=== PATIENT | female | born 1965 | race Caucasian/White ===

== ENCOUNTER → 2016-12-15 | Outpatient (CLI) | payer BC ==
[2016-12-15 17:16] LABS: BASO % 0.1 % (0.0-1.0); EOS % 0.2 % (0.0-3.0); LARGE UNSTAINED CELL # 0.3 K/mm3 (0.0-0.4); LARGE UNSTAINED CELL % 2.2 % (0.0-4.0); LYMPH % 7.4 % (24.0-44.0); MEAN CORPUSCULAR HEMOGLOBIN 30.5 pg (27.0-33.0); MEAN CORPUSCULAR HGB CONC 34.3 g/dl (32.0-36.5); MONO # 1.1 K/mm3 (0.0-0.8); MONO % 8.2 % (0.0-5.0); NEUTROPHILS # 10.9 K/mm3 (1.8-7.7); NEUTROPHILS % 81.9 % (36.0-66.0); PLATELET COUNT, AUTOMATED 235 k/mm3 (150-450); WHITE BLOOD COUNT 13.3 K/mm3 (4.0-10.0)
== END ==
LOC: M WUC 11:08
PROVIDERS: ATTEND Physician Assistant
DX: R50.9 Fever, unspecified (principal)

== ENCOUNTER 2016-12-18 17:40 | Emergency (ER) | payer BC ==
[2016-12-18] MEDS ORDERED: IBUPROFEN 400 MG TAB As Ordered ONE (18:15)
[2016-12-18] MEDS ORDERED: ACETAMINOPHEN 325 MG TAB As Ordered ONE (18:15)
[2016-12-18] MEDS ORDERED: CIPROFLOXACIN 500 MG TAB As Ordered ONE (18:49)
--- NOTE | 2016-12-18 18:56 | EDDOCDS ---
Physician Documentation [facility] Name: Reshma Sadler Age: 51 yrs Sex: Female : 1965 Arrival Date: 12/18/2016 Time: 17:40 Bed TR3 Private MD: King Valentino WAT Disposition: 12/18/16 18:50 Discharged to Home/Self Care. Impression: Urinary tract infection, site not specified. - Condition is Stable. - Discharge Instructions: Fever, Adult, Urinary Tract Infection. - Prescriptions for Cipro 500 mg Oral Tablet - take 1 tablet by ORAL route every 12 hours; 14 tablet. - Medication Reconciliation, Work Release Form - 2 day, Local Pharmacy Hours form. - Follow up: King Valentino; When: Call to arrange an appointment; Reason: Recheck today's complaints, Continuance of care. - Problem is new. - Symptoms are unchanged. Historical: - Allergies: no known allergies; - Home Meds: 1. none - PMHx: none; - PSHx: Cholecystectomy; - Social history: Smoking status: Patient states was never smoker of tobacco. No barriers to communication noted, The patient speaks fluent Guamanian, Speaks appropriately for age. - Family history: Not pertinent. - : The pt / caregiver states he / she is not on anticoagulants. Home medication list is obtained from the patient. - Exposure Risk Screening:: None identified. 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 0 in. (152.40 cm) (R); Pain 6/10; 17:42 Body Mass Index 23.44 (54.43 kg, 152.40 cm) mt4 MDM: 18:10 Ibuprofen 400 mg PO once ordered. dt4 18:10 Acetaminophen Tablet 650 mg PO once ordered. dt4 18:10 Strep Screen, Nursing ordered. dt4 18:10 Urinalysis Ordered. EDMS 18:10 Urine Culture Ordered. EDMS 18:37 GATS (NEGATIVE STREP SCREEN) Ordered. EDMS 18:41 Urinalysis Reviewed. mo1 18:47 Ciprofloxacin 500 mg PO once ordered. mo1 Administered Medications: 18:19 Not Given (patient had at 4PM): Ibuprofen 400 mg PO once kr3 18:19 Drug: Acetaminophen 650 mg [acetaminophen 325 mg tablet (2 tabs)] Route: PO; kr3 18:50 Drug: Ciprofloxacin 500 mg [ciprofloxacin 500 mg tablet (1 tabs)] Route: PO; pml Signatures: Dispatcher [employer] EDMarlen Lipscomb RN RN pml King Amezcua PA PA mo1 Matilda García PA-C PAMayra dt4 Kate Cedeno RN kr3 The chart was reviewed and I authenticate all verbal orders and agree with the evaluation and treatment provided.Corrections: (The following items were deleted from the chart) 18:20 18:10 Obtain sample by nasopharyngeal swab ordered. dt4 kr3 18:22 18:10 INFLUENZA A&B RAPID ANTIGEN+JASWINDER ordered. EDMS EDMS MTDD
--- NOTE | 2016-12-18 18:56 | EDDOCDS ---
Nurse's Notes [facility] Name: Reshma Sadler Age: 51 yrs Sex: Female : 1965 Arrival Date: 12/18/2016 Time: 17:40 Bed TR3 Private MD: King Valentino WAT Diagnosis: Urinary tract infection, site not specified Presentation: 12/18 18:00 Presenting complaint: Patient states: intermittent fever and body aches for last few pml days. denies abdominal pain, nausea, vomiting. Adult Sepsis Screening: The patient does not have new or worsening altered mentation. Patient's respiratory rate is less than 22. Systolic blood pressure is greater than 100. Patient has a qSOFA score of 0- Negative Sepsis Screen. Suicide/Homicide risk assessment- the patient denies having any suicidal and/or homicidal ideations and does not present with any other emotional, behavioral or mental health complaints. Status: Patient is not a coordinator volunteer services or dependent. Transition of care: patient was not received from another setting of care. 18:00 Method Of Arrival: Walkin/Carried/Asstd pml 18:00 Acuity: JACOB Level 4 pml 18:01 Presenting complaint: Patient states: last dose Motrin 1600 - 600mg. pml Triage Assessment: 18:01 General: Appears in no apparent distress, comfortable, Behavior is appropriate for age, pml cooperative. Pain: Location: body aches Pain currently is 8 out of 10 on a pain scale. HIV screening NA for this visit Offered previously. 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 none - PMHx: none; - PSHx: Cholecystectomy; - Social history: Smoking status: Patient states was never smoker of tobacco. No barriers to communication noted, The patient speaks fluent Peruvian, Speaks appropriately for age. - Family history: Not pertinent. - : The pt / caregiver states he / she is not on anticoagulants. Home medication list is obtained from the patient. - Exposure Risk Screening:: None identified. Screenin:37 Screening information is obtained from the patient. Fall risk: No risks identified. kr3 Assistance ADL's: requires no assistance with activities of daily living. Abuse/DV Screen: The patient / caregiver reports he/she is: not in a situation that causes fear, pain or injury. Nutritional screening: No deficits noted. Advance Directives: Currently, there is no health care proxy. home support is adequate. Assessment: 18:36 Reassessment: Patient appears in no apparent distress at this time. Neurological: Level kr3 of Consciousness is awake, alert, Moves all extremities. Gait is steady, Speech is normal. EENT: Denies nasal congestion, nasal discharge. Respiratory: Respiratory effort is even, unlabored. Derm: Skin is normal, Skin temperature is warm. 18:53 General: Appears in no apparent distress, comfortable, Behavior is appropriate for age, pml cooperative. Neurological: Level of Consciousness is awake, alert, Oriented to person, place, time. Cardiovascular: Capillary refill < 3 seconds. Respiratory: Airway is patent Respiratory effort is even, unlabored. GI: Abdomen is non- distended. : Reports urgency urinary frequency. Derm: Skin is pink, warm & dry. Vital Signs: 17:42 BP 100 / 56 LA Sitting (auto/reg); Pulse 118 LA; Resp 18 S; Temp 101.2(O); Pulse Ox 98% mt4 on R/A; Weight 54.43 kg (R); Height 5 ft. 0 in. (152.40 cm) (R); Pain 6/10; 17:42 Body Mass Index 23.44 (54.43 kg, 152.40 cm) mt4 Vitals: 17:42 Log In Time: December 18, 2016 at 17:40. mt4 18:36 Strep Screen is obtained and tested: Negative, a GATSNEG culture is ordered in [facility] kr3 and sent. ED Course: 17:41 Patient visited by Pearl Kulkarni. mt4 17:41 King Valentino is Private Physician. mt4 17:41 Patient moved to Waiting mt4 17:44 Patient moved to Pre RCE mt4 18:01 Triage Initiated pml 18:03 Patient visited by Marlen Hancock RN. pml 18:18 Patient moved to Triage 1 kr3 18:21 Patient moved to TR2 pml 18:21 Patient moved to Triage 1 pml 18:26 Urine Culture Sent. kr3 18:26 Urinalysis Sent. kr3 18:31 King Amezcua PA is PHCP. mo1 18:31 Pascual Pettit MD is Attending Physician. mo1 18:37 The patient / caregiver is instructed regarding the plan of care and ED course. Patient dipti has correct armband on for positive identification. 18:40 Patient visited by King Amezcua PA. mo1 18:50 King Valentino is Referral Physician. mo1 18:53 No IV's were initiated during this patient's visit. No procedures done that require pml assistance. 18:54 Patient moved to [facility] jo3 Administered Medications: 18:19 Not Given (patient had at 4PM): Ibuprofen 400 mg PO once kr3 18:19 Drug: Acetaminophen 650 mg [acetaminophen 325 mg tablet (2 tabs)] Route: PO; kr3 18:50 Drug: Ciprofloxacin 500 mg [ciprofloxacin 500 mg tablet (1 tabs)] Route: PO; pml Order Results: Lab Order: Urinalysis; SPEC'M 12/18/16 18:22 Test: APPEARANCE, URINE; Value: CLOUDY; Range: CLEAR; Abnormal: Above high normal; Status: F Test: COLOR, URINE; Value: YELLOW; Range: YELLOW; Status: F Test: PH,URINE; Value: 5.0; Range: 5.0-9.0; Units: UNITS; Status: F Test: SPECIFIC GRAVITY URINE AUTO; Value: 1.012; Range: 1.002-1.035; Status: F Test: PROTEIN, URINE AUTO; Value: 2+; Range: NEGATIVE; Abnormal: Above high normal; Units: mg/dL; Status: F Test: GLUCOSE, URINE (UA) AUTO; Value: 1+; Range: NEGATIVE; Abnormal: Above high normal; Units: mg/dL; Status: F Test: KETONE, URINE AUTO; Value: NEGATIVE; Range: NEGATIVE; Units: mg/dL; Status: F Test: UROBILINOGEN, URINE AUTO; Value: 2.0; Range: 0.0-2.0; Abnormal: Above high normal; Units: mg/dL; Status: F Test: BILIRUBIN, URINE AUTO; Value: NEGATIVE; Range: NEGATIVE; Status: F Test: NITRITE, URINE AUTO; Value: NEGATIVE; Range: NEGATIVE; Status: F Test: LEUKOCYTE ESTERASE, URINE AUTO; Value: 3+; Range: NEGATIVE; Abnormal: Above high normal; Status: F Test: BLOOD, URINE BLOOD; Value: 2+; Range: NEGATIVE; Abnormal: Above high normal; Status: F Test: WBC, URINE AUTO; Value: 74; Range: 0-3; Abnormal: Above high normal; Units: /HPF; Status: F Test: RBC, URINE AUTO; Value: 5; Range: 0-3; Abnormal: Above high normal; Units: /HPF; Status: F Test: BACTERIA, URINE AUTO; Value: 2+; Range: NEGATIVE; Abnormal: Above high normal; Status: F Test: SQUAMOUS EPITHELIAL CELL UR AU; Value: 3; Range: 0-6; Units: /HPF; Status: F Test: TRANSITIONAL EPITHELIAL AUTO; Value: 1; Range: NONE; Units: /HPF; Status: F Test: MUCUS, URINE; Value: SMALL; Range: NEGATIVE; Status: F Test: HYALINE CAST, URINE AUTO; Value: 0; Range: 0-1; Units: /LPF; Status: F Test: AMORPHOUS SEDIMENT; Value: SMALL; Range: NEGATIVE; Abnormal: Above high normal; Status: F Outcome: 18:50 Discharge ordered by Provider. mo1 18:53 Discharge Assessment: Patient awake, alert and oriented x 3. No cognitive and/or pml functional deficits noted. Patient verbalized understanding of disposition instructions. patient administered narcotics - no. The following High Risk Discharge criteria are identified: None. Discharged to home ambulatory. Condition: good Condition: stable. Discharge instructions given to patient, Instructed on discharge instructions, follow up and referral plans. medication usage, Demonstrated understanding of instructions, medications, Pt was receptive of discharge instructions/ teaching. No special radiology studies were completed. Property sent home with patient. 18:55 Patient left the ED. pml Signatures: Kate Cedeno RN RN kr3 Brena Crandall RN RN jo3 Pearl Kulkarni mt4 Marlen Hancock RN RN pml O'Hagan, Michael, PA PA mo1 Corrections: (The following items were deleted from the chart) 18:02 18:01 Presenting complaint: Patient states: last dose Tylenol 1600 pml pml MTDD
--- NOTE | 2016-12-20 19:56 | EDDOCDS ---
Physician Documentation [facility] Name: Reshma Sadler Age: 51 yrs Sex: Female : 1965 Arrival Date: 12/18/2016 Time: 17:40 Bed TR3 Private MD: King Valentino WAT Disposition: 12/18/16 18:50 Discharged to Home/Self Care. Impression: Urinary tract infection, site not specified. - Condition is Stable. - Discharge Instructions: Fever, Adult, Urinary Tract Infection. - Prescriptions for Cipro 500 mg Oral Tablet - take 1 tablet by ORAL route every 12 hours; 14 tablet. - Medication Reconciliation, Work Release Form - 2 day, Local Pharmacy Hours form. - Follow up: King Valentino; When: Call to arrange an appointment; Reason: Recheck today's complaints, Continuance of care. - Problem is new. - Symptoms are unchanged. Historical: - Allergies: no known allergies; - Home Meds: 1. none - PMHx: none; - PSHx: Cholecystectomy; - Social history: Smoking status: Patient states was never smoker of tobacco. No barriers to communication noted, The patient speaks fluent Angolan, Speaks appropriately for age. - Family history: Not pertinent. - : The pt / caregiver states he / she is not on anticoagulants. Home medication list is obtained from the patient. - Exposure Risk Screening:: None identified. 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 0 in. (152.40 cm) (R); Pain 6/10; 17:42 Body Mass Index 23.44 (54.43 kg, 152.40 cm) mt4 MDM: 18:10 Ibuprofen 400 mg PO once ordered. dt4 18:10 Acetaminophen Tablet 650 mg PO once ordered. dt4 18:10 Strep Screen, Nursing ordered. dt4 18:10 Urinalysis Ordered. EDMS 18:10 Urine Culture Ordered. EDMS 18:37 GATS (NEGATIVE STREP SCREEN) Ordered. EDMS 18:41 Urinalysis Reviewed. mo1 18:47 Ciprofloxacin 500 mg PO once ordered. mo1 19:05 Financial registration complete. ks16 19:05 [facility] Payment Agreement was scanned into [employer] and attached to record. 12/19 11:25 T-Sheet-- Draft Copy was scanned into [employer] and attached to record. gb Administered Medications: 12/18 18:19 Not Given (patient had at 4PM): Ibuprofen 400 mg PO once kr3 18:19 Drug: Acetaminophen 650 mg [acetaminophen 325 mg tablet (2 tabs)] Route: PO; kr3 18:50 Drug: Ciprofloxacin 500 mg [ciprofloxacin 500 mg tablet (1 tabs)] Route: PO; pml Signatures: Dispatcher MedHost EDMS Jackie Herrera, Reg Reg gb Marlen Hancock RN RN pml King Amezcua PA PA mo1 Matilda García PA-C PAMayra dt4 Roxann Jorgensen, Reg Reg ks16 Kate Cedeno RN kr3 The chart was reviewed and I authenticate all verbal orders and agree with the evaluation and treatment provided.Corrections: (The following items were deleted from the chart) 18:20 18:10 Obtain sample by nasopharyngeal swab ordered. dt4 kr3 18:22 18:10 INFLUENZA A&B RAPID ANTIGEN+JASWINDER ordered. EDMS EDMS Attachments: 19:05 [facility] Payment Agreement 12/19 11:25 T-Sheet-- Draft Copy gb Chart Complete MTDD
--- NOTE | 2016-12-20 19:56 | EDDOCDS ---
Nurse's Notes [facility] Name: Reshma Sadler Age: 51 yrs Sex: Female : 1965 Arrival Date: 12/18/2016 Time: 17:40 Bed TR3 Private MD: King Valentino WAT Diagnosis: Urinary tract infection, site not specified Presentation: 12/18 18:00 Presenting complaint: Patient states: intermittent fever and body aches for last few pml days. denies abdominal pain, nausea, vomiting. Adult Sepsis Screening: The patient does not have new or worsening altered mentation. Patient's respiratory rate is less than 22. Systolic blood pressure is greater than 100. Patient has a qSOFA score of 0- Negative Sepsis Screen. Suicide/Homicide risk assessment- the patient denies having any suicidal and/or homicidal ideations and does not present with any other emotional, behavioral or mental health complaints. Status: Patient is not a business services specialist sales or dependent. Transition of care: patient was not received from another setting of care. 18:00 Method Of Arrival: Walkin/Carried/Asstd pml 18:00 Acuity: JACOB Level 4 pml 18:01 Presenting complaint: Patient states: last dose Motrin 1600 - 600mg. pml Triage Assessment: 18:01 General: Appears in no apparent distress, comfortable, Behavior is appropriate for age, pml cooperative. Pain: Location: body aches Pain currently is 8 out of 10 on a pain scale. HIV screening NA for this visit Offered previously. 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 none - PMHx: none; - PSHx: Cholecystectomy; - Social history: Smoking status: Patient states was never smoker of tobacco. No barriers to communication noted, The patient speaks fluent Israeli, Speaks appropriately for age. - Family history: Not pertinent. - : The pt / caregiver states he / she is not on anticoagulants. Home medication list is obtained from the patient. - Exposure Risk Screening:: None identified. Screenin:37 Screening information is obtained from the patient. Fall risk: No risks identified. kr3 Assistance ADL's: requires no assistance with activities of daily living. Abuse/DV Screen: The patient / caregiver reports he/she is: not in a situation that causes fear, pain or injury. Nutritional screening: No deficits noted. Advance Directives: Currently, there is no health care proxy. home support is adequate. Assessment: 18:36 Reassessment: Patient appears in no apparent distress at this time. Neurological: Level kr3 of Consciousness is awake, alert, Moves all extremities. Gait is steady, Speech is normal. EENT: Denies nasal congestion, nasal discharge. Respiratory: Respiratory effort is even, unlabored. Derm: Skin is normal, Skin temperature is warm. 18:53 General: Appears in no apparent distress, comfortable, Behavior is appropriate for age, pml cooperative. Neurological: Level of Consciousness is awake, alert, Oriented to person, place, time. Cardiovascular: Capillary refill < 3 seconds. Respiratory: Airway is patent Respiratory effort is even, unlabored. GI: Abdomen is non- distended. : Reports urgency urinary frequency. Derm: Skin is pink, warm & dry. Vital Signs: 17:42 BP 100 / 56 LA Sitting (auto/reg); Pulse 118 LA; Resp 18 S; Temp 101.2(O); Pulse Ox 98% mt4 on R/A; Weight 54.43 kg (R); Height 5 ft. 0 in. (152.40 cm) (R); Pain 6/10; 17:42 Body Mass Index 23.44 (54.43 kg, 152.40 cm) mt4 Vitals: 17:42 Log In Time: December 18, 2016 at 17:40. mt4 18:36 Strep Screen is obtained and tested: Negative, a GATSNEG culture is ordered in [facility] kr3 and sent. ED Course: 17:41 Patient visited by Pearl Kulkarni. mt4 17:41 King Valentino is Private Physician. mt4 17:41 Patient moved to Waiting mt4 17:44 Patient moved to Pre RCE mt4 18:01 Triage Initiated pml 18:03 Patient visited by Marlen Hancock RN. pml 18:18 Patient moved to Triage 1 kr3 18:21 Patient moved to TR2 pml 18:21 Patient moved to Triage 1 pml 18:26 Urine Culture Sent. kr3 18:26 Urinalysis Sent. kr3 18:31 King Amezcua PA is PHCP. mo1 18:31 Pascual Pettit MD is Attending Physician. mo1 18:37 The patient / caregiver is instructed regarding the plan of care and ED course. Patient dipti has correct armband on for positive identification. 18:40 Patient visited by King Amezcua PA. mo1 18:50 King Valentino is Referral Physician. mo1 18:53 No IV's were initiated during this patient's visit. No procedures done that require pml assistance. 18:54 Patient moved to TR3 jo3 19:01 Patient name changed from Reshma\S\\S\Doroteo\S\ to Reshma\S\ \S\Doroteo. EDMS 19:05 [facility] Payment Agreement was scanned into [employer] and attached to record. ks16 12/19 11:25 T-Sheet-- Draft Copy was scanned into [employer] and attached to record. gb Administered Medications: 12/18 18:19 Not Given (patient had at 4PM): Ibuprofen 400 mg PO once kr3 18:19 Drug: Acetaminophen 650 mg [acetaminophen 325 mg tablet (2 tabs)] Route: PO; kr3 18:50 Drug: Ciprofloxacin 500 mg [ciprofloxacin 500 mg tablet (1 tabs)] Route: PO; pml Order Results: Lab Order: Urinalysis; SPEC'M 12/18/16 18:22 Test: APPEARANCE, URINE; Value: CLOUDY; Range: CLEAR; Abnormal: Above high normal; Status: F Test: COLOR, URINE; Value: YELLOW; Range: YELLOW; Status: F Test: PH,URINE; Value: 5.0; Range: 5.0-9.0; Units: UNITS; Status: F Test: SPECIFIC GRAVITY URINE AUTO; Value: 1.012; Range: 1.002-1.035; Status: F Test: PROTEIN, URINE AUTO; Value: 2+; Range: NEGATIVE; Abnormal: Above high normal; Units: mg/dL; Status: F Test: GLUCOSE, URINE (UA) AUTO; Value: 1+; Range: NEGATIVE; Abnormal: Above high normal; Units: mg/dL; Status: F Test: KETONE, URINE AUTO; Value: NEGATIVE; Range: NEGATIVE; Units: mg/dL; Status: F Test: UROBILINOGEN, URINE AUTO; Value: 2.0; Range: 0.0-2.0; Abnormal: Above high normal; Units: mg/dL; Status: F Test: BILIRUBIN, URINE AUTO; Value: NEGATIVE; Range: NEGATIVE; Status: F Test: NITRITE, URINE AUTO; Value: NEGATIVE; Range: NEGATIVE; Status: F Test: LEUKOCYTE ESTERASE, URINE AUTO; Value: 3+; Range: NEGATIVE; Abnormal: Above high normal; Status: F Test: BLOOD, URINE BLOOD; Value: 2+; Range: NEGATIVE; Abnormal: Above high normal; Status: F Test: WBC, URINE AUTO; Value: 74; Range: 0-3; Abnormal: Above high normal; Units: /HPF; Status: F Test: RBC, URINE AUTO; Value: 5; Range: 0-3; Abnormal: Above high normal; Units: /HPF; Status: F Test: BACTERIA, URINE AUTO; Value: 2+; Range: NEGATIVE; Abnormal: Above high normal; Status: F Test: SQUAMOUS EPITHELIAL CELL UR AU; Value: 3; Range: 0-6; Units: /HPF; Status: F Test: TRANSITIONAL EPITHELIAL AUTO; Value: 1; Range: NONE; Units: /HPF; Status: F Test: MUCUS, URINE; Value: SMALL; Range: NEGATIVE; Status: F Test: HYALINE CAST, URINE AUTO; Value: 0; Range: 0-1; Units: /LPF; Status: F Test: AMORPHOUS SEDIMENT; Value: SMALL; Range: NEGATIVE; Abnormal: Above high normal; Status: F Lab Order: Urine Culture; SPEC'M 12/18/16 18:22 Test: URINE CULTURE; Value: <EXTERNAL COMMENT eCWMed> FULL REPORT IN LAB NOTES (eCW and Medent).; Status: F Test: URINE CULTURE; Value: ORGANISM 1: ESCHERICHIA COLI; Status: F Test: URINE CULTURE; Value: ESCHERICHIA COLI; Status: F Test: URINE CULTURE; Value: COLONY COUNT CFU/ml 40,000; Status: F Test: URINE CULTURE; Value: GRAM NEG SENSI - VITEK 80; Status: F Test: URINE CULTURE; Value: Method: VIT2; Status: F Test: URINE CULTURE; Value: EXTD BRD SPCTRM BETA LACTAMASE -; Status: F Test: URINE CULTURE; Value: TRIMETHOPRIM/SULFAMETHOXAZOLE <=20 S; Status: F Test: URINE CULTURE; Value: AMPICILLIN <=2 S; Status: F Test: URINE CULTURE; Value: GENTAMICIN <=1 S; Status: F Test: URINE CULTURE; Value: NITROFURANTOIN <=16 S; Status: F Test: URINE CULTURE; Value: CEFAZOLIN <=4 S; Status: F Test: URINE CULTURE; Value: LEVOFLOXACIN <=0.12 S; Status: F Test: URINE CULTURE; Value: TOBRAMYCIN <=1 S; Status: F Test: URINE CULTURE; Value: CEFTRIAXONE <=1 S; Status: F Test: URINE CULTURE; Value: CEFTAZIDIME <=1 S; Status: F Test: URINE CULTURE; Value: AMPICILLIN/SULBACTAM <=2 S; Status: F Test: URINE CULTURE; Value: PIPERACILLIN/TAZOBACTAM <=4 S; Status: F Test: URINE CULTURE; Value: AZTREONAM <=1 S; Status: F Test: URINE CULTURE; Value: ERTAPENEM <=0.5 S; Status: F Test: URINE CULTURE; Value: MEROPENEM <=0.25 S; Status: F Test: URINE CULTURE; Value: TIGECYCLINE <=0.5 S; Status: F Test: URINE CULTURE; Value: CEFEPIME <=1 S; Status: F Lab Order: GATS (NEGATIVE STREP SCREEN); SPEC'M 12/18/16 18:22 Test: GATS CULTURE (NEG STREP SCR); Value: GATS RESULT NEGATIVE FOR STREP PYOGENES (GROUP A); Status: F Outcome: 18:50 Discharge ordered by Provider. mo1 18:53 Discharge Assessment: Patient awake, alert and oriented x 3. No cognitive and/or pml functional deficits noted. Patient verbalized understanding of disposition instructions. patient administered narcotics - no. The following High Risk Discharge criteria are identified: None. Discharged to home ambulatory. Condition: good Condition: stable. Discharge instructions given to patient, Instructed on discharge instructions, follow up and referral plans. medication usage, Demonstrated understanding of instructions, medications, Pt was receptive of discharge instructions/ teaching. No special radiology studies were completed. Property sent home with patient. 18:55 Patient left the ED. pml 12/20 11:17 Urine culture results reviewed with Dr. Pang and no change in treatment needed.:. pan Signatures: Dispatcher MedHost EDMS Lizeth Manning RN RN pan Herrera, Jackie, Reg Reg gb Kate CedenoRN RN cony3 Berna CrandallRN RN Pearl Berg dcMarlen Garcia RN RN pml King Amezcua PA PA mo1 Roxann Jorgensen, Reg Reg ks16 Corrections: (The following items were deleted from the chart) 12/18 18:02 18:01 Presenting complaint: Patient states: last dose Tylenol 1600 pml pml Chart Complete MTDD
--- NOTE | 2016-12-20 19:56 | EDDOCDS ---
Physician Documentation [facility] Name: Reshma Sadler Age: 51 yrs Sex: Female : 1965 Arrival Date: 12/18/2016 Time: 17:40 Bed TR3 Private MD: King Valentino WAT Disposition: 12/18/16 18:50 Discharged to Home/Self Care. Impression: Urinary tract infection, site not specified. - Condition is Stable. - Discharge Instructions: Fever, Adult, Urinary Tract Infection. - Prescriptions for Cipro 500 mg Oral Tablet - take 1 tablet by ORAL route every 12 hours; 14 tablet. - Medication Reconciliation, Work Release Form - 2 day, Local Pharmacy Hours form. - Follow up: King Valentino; When: Call to arrange an appointment; Reason: Recheck today's complaints, Continuance of care. - Problem is new. - Symptoms are unchanged. Historical: - Allergies: no known allergies; - Home Meds: 1. none - PMHx: none; - PSHx: Cholecystectomy; - Social history: Smoking status: Patient states was never smoker of tobacco. No barriers to communication noted, The patient speaks fluent Serbian, Speaks appropriately for age. - Family history: Not pertinent. - : The pt / caregiver states he / she is not on anticoagulants. Home medication list is obtained from the patient. - Exposure Risk Screening:: None identified. 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 0 in. (152.40 cm) (R); Pain 6/10; 17:42 Body Mass Index 23.44 (54.43 kg, 152.40 cm) mt4 MDM: 18:10 Ibuprofen 400 mg PO once ordered. dt4 18:10 Acetaminophen Tablet 650 mg PO once ordered. dt4 18:10 Strep Screen, Nursing ordered. dt4 18:10 Urinalysis Ordered. EDMS 18:10 Urine Culture Ordered. EDMS 18:37 GATS (NEGATIVE STREP SCREEN) Ordered. EDMS 18:41 Urinalysis Reviewed. mo1 18:47 Ciprofloxacin 500 mg PO once ordered. mo1 19:05 Financial registration complete. ks16 19:05 [facility] Payment Agreement was scanned into [employer] and attached to record. 12/19 11:25 T-Sheet-- Draft Copy was scanned into [employer] and attached to record. gb Administered Medications: 12/18 18:19 Not Given (patient had at 4PM): Ibuprofen 400 mg PO once kr3 18:19 Drug: Acetaminophen 650 mg [acetaminophen 325 mg tablet (2 tabs)] Route: PO; kr3 18:50 Drug: Ciprofloxacin 500 mg [ciprofloxacin 500 mg tablet (1 tabs)] Route: PO; pml Signatures: Dispatcher MedHost EDMS Jackie Herrera, Reg Reg gb Marlen Hancock RN RN pml King Amezcua PA PA mo1 Matilda García PA-C PAMayra dt4 Roxann Jorgensen, Reg Reg ks16 Kate Cedeno RN kr3 The chart was reviewed and I authenticate all verbal orders and agree with the evaluation and treatment provided.Corrections: (The following items were deleted from the chart) 18:20 18:10 Obtain sample by nasopharyngeal swab ordered. dt4 kr3 18:22 18:10 INFLUENZA A&B RAPID ANTIGEN+JASWINDER ordered. EDMS EDMS Attachments: 19:05 [facility] Payment Agreement 12/19 11:25 T-Sheet-- Draft Copy gb Chart Complete MTDD
--- NOTE | 2016-12-21 12:45 | EDDOCDS ---
Nurse's Notes [facility] Name: Reshma Sadler Age: 51 yrs Sex: Female : 1965 Arrival Date: 12/18/2016 Time: 17:40 Bed TR3 Private MD: King Valentino WAT Diagnosis: Urinary tract infection, site not specified Presentation: 12/18 18:00 Presenting complaint: Patient states: intermittent fever and body aches for last few pml days. denies abdominal pain, nausea, vomiting. Adult Sepsis Screening: The patient does not have new or worsening altered mentation. Patient's respiratory rate is less than 22. Systolic blood pressure is greater than 100. Patient has a qSOFA score of 0- Negative Sepsis Screen. Suicide/Homicide risk assessment- the patient denies having any suicidal and/or homicidal ideations and does not present with any other emotional, behavioral or mental health complaints. 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 Transition of care: patient was not received from another setting of care. 18:00 Method Of Arrival: Walkin/Carried/Asstd pml 18:00 Acuity: JACOB Level 4 pml 18:01 Presenting complaint: Patient states: last dose Motrin 1600 - 600mg. pml Triage Assessment: 18:01 General: Appears in no apparent distress, comfortable, Behavior is appropriate for age, pml cooperative. Pain: Location: body aches Pain currently is 8 out of 10 on a pain scale. HIV screening NA for this visit Offered previously. 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 none - PMHx: none; - PSHx: Cholecystectomy; - Social history: Smoking status: Patient states was never smoker of tobacco. No barriers to communication noted, The patient speaks fluent Citizen Of [place], Speaks appropriately for age. - Family history: Not pertinent. - : The pt / caregiver states he / she is not on anticoagulants. Home medication list is obtained from the patient. - Exposure Risk Screening:: None identified. Screenin:37 Screening information is obtained from the patient. Fall risk: No risks identified. kr3 Assistance ADL's: requires no assistance with activities of daily living. Abuse/DV Screen: The patient / caregiver reports he/she is: not in a situation that causes fear, pain or injury. Nutritional screening: No deficits noted. Advance Directives: Currently, there is no health care proxy. home support is adequate. Assessment: 18:36 Reassessment: Patient appears in no apparent distress at this time. Neurological: Level kr3 of Consciousness is awake, alert, Moves all extremities. Gait is steady, Speech is normal. EENT: Denies nasal congestion, nasal discharge. Respiratory: Respiratory effort is even, unlabored. Derm: Skin is normal, Skin temperature is warm. 18:53 General: Appears in no apparent distress, comfortable, Behavior is appropriate for age, pml cooperative. Neurological: Level of Consciousness is awake, alert, Oriented to person, place, time. Cardiovascular: Capillary refill < 3 seconds. Respiratory: Airway is patent Respiratory effort is even, unlabored. GI: Abdomen is non- distended. : Reports urgency urinary frequency. Derm: Skin is pink, warm & dry. Vital Signs: 17:42 BP 100 / 56 LA Sitting (auto/reg); Pulse 118 LA; Resp 18 S; Temp 101.2(O); Pulse Ox 98% mt4 on R/A; Weight 54.43 kg (R); Height 5 ft. 0 in. (152.40 cm) (R); Pain 6/10; 17:42 Body Mass Index 23.44 (54.43 kg, 152.40 cm) mt4 Vitals: 17:42 Log In Time: December 18, 2016 at 17:40. mt4 18:36 Strep Screen is obtained and tested: Negative, a GATSNEG culture is ordered in [facility] kr3 and sent. ED Course: 17:41 Patient visited by Pearl Kulkarni. mt4 17:41 King Valentino is Private Physician. mt4 17:41 Patient moved to Waiting mt4 17:44 Patient moved to Pre RCE mt4 18:01 Triage Initiated pml 18:03 Patient visited by Marlen Hancock RN. pml 18:18 Patient moved to Triage 1 kr3 18:21 Patient moved to TR2 pml 18:21 Patient moved to Triage 1 pml 18:26 Urine Culture Sent. kr3 18:26 Urinalysis Sent. kr3 18:31 King Amezcua PA is PHCP. mo1 18:31 Pascual Pettit MD is Attending Physician. mo1 18:37 The patient / caregiver is instructed regarding the plan of care and ED course. Patient dipti has correct armband on for positive identification. 18:40 Patient visited by King Amezcua PA. mo1 18:50 King Valentino is Referral Physician. mo1 18:53 No IV's were initiated during this patient's visit. No procedures done that require pml assistance. 18:54 Patient moved to TR3 jo3 19:01 Patient name changed from Reshma\S\\S\Doroteo\S\ to Reshma\S\ \S\Doroteo. EDMS 19:05 [facility] Payment Agreement was scanned into [employer] and attached to record. ks16 12/19 11:25 T-Sheet-- Draft Copy was scanned into [employer] and attached to record. gb Administered Medications: 12/18 18:19 Not Given (patient had at 4PM): Ibuprofen 400 mg PO once kr3 18:19 Drug: Acetaminophen 650 mg [acetaminophen 325 mg tablet (2 tabs)] Route: PO; kr3 18:50 Drug: Ciprofloxacin 500 mg [ciprofloxacin 500 mg tablet (1 tabs)] Route: PO; pml Order Results: Lab Order: Urinalysis; SPEC'M 12/18/16 18:22 Test: APPEARANCE, URINE; Value: CLOUDY; Range: CLEAR; Abnormal: Above high normal; Status: F Test: COLOR, URINE; Value: YELLOW; Range: YELLOW; Status: F Test: PH,URINE; Value: 5.0; Range: 5.0-9.0; Units: UNITS; Status: F Test: SPECIFIC GRAVITY URINE AUTO; Value: 1.012; Range: 1.002-1.035; Status: F Test: PROTEIN, URINE AUTO; Value: 2+; Range: NEGATIVE; Abnormal: Above high normal; Units: mg/dL; Status: F Test: GLUCOSE, URINE (UA) AUTO; Value: 1+; Range: NEGATIVE; Abnormal: Above high normal; Units: mg/dL; Status: F Test: KETONE, URINE AUTO; Value: NEGATIVE; Range: NEGATIVE; Units: mg/dL; Status: F Test: UROBILINOGEN, URINE AUTO; Value: 2.0; Range: 0.0-2.0; Abnormal: Above high normal; Units: mg/dL; Status: F Test: BILIRUBIN, URINE AUTO; Value: NEGATIVE; Range: NEGATIVE; Status: F Test: NITRITE, URINE AUTO; Value: NEGATIVE; Range: NEGATIVE; Status: F Test: LEUKOCYTE ESTERASE, URINE AUTO; Value: 3+; Range: NEGATIVE; Abnormal: Above high normal; Status: F Test: BLOOD, URINE BLOOD; Value: 2+; Range: NEGATIVE; Abnormal: Above high normal; Status: F Test: WBC, URINE AUTO; Value: 74; Range: 0-3; Abnormal: Above high normal; Units: /HPF; Status: F Test: RBC, URINE AUTO; Value: 5; Range: 0-3; Abnormal: Above high normal; Units: /HPF; Status: F Test: BACTERIA, URINE AUTO; Value: 2+; Range: NEGATIVE; Abnormal: Above high normal; Status: F Test: SQUAMOUS EPITHELIAL CELL UR AU; Value: 3; Range: 0-6; Units: /HPF; Status: F Test: TRANSITIONAL EPITHELIAL AUTO; Value: 1; Range: NONE; Units: /HPF; Status: F Test: MUCUS, URINE; Value: SMALL; Range: NEGATIVE; Status: F Test: HYALINE CAST, URINE AUTO; Value: 0; Range: 0-1; Units: /LPF; Status: F Test: AMORPHOUS SEDIMENT; Value: SMALL; Range: NEGATIVE; Abnormal: Above high normal; Status: F Lab Order: Urine Culture; SPEC'M 12/18/16 18:22 Test: URINE CULTURE; Value: <EXTERNAL COMMENT eCWMed> FULL REPORT IN LAB NOTES (eCW and Medent).; Status: F Test: URINE CULTURE; Value: ORGANISM 1: ESCHERICHIA COLI; Status: F Test: URINE CULTURE; Value: ESCHERICHIA COLI; Status: F Test: URINE CULTURE; Value: COLONY COUNT CFU/ml 40,000; Status: F Test: URINE CULTURE; Value: GRAM NEG SENSI - VITEK 80; Status: F Test: URINE CULTURE; Value: Method: VIT2; Status: F Test: URINE CULTURE; Value: EXTD BRD SPCTRM BETA LACTAMASE -; Status: F Test: URINE CULTURE; Value: TRIMETHOPRIM/SULFAMETHOXAZOLE <=20 S; Status: F Test: URINE CULTURE; Value: AMPICILLIN <=2 S; Status: F Test: URINE CULTURE; Value: GENTAMICIN <=1 S; Status: F Test: URINE CULTURE; Value: NITROFURANTOIN <=16 S; Status: F Test: URINE CULTURE; Value: CEFAZOLIN <=4 S; Status: F Test: URINE CULTURE; Value: LEVOFLOXACIN <=0.12 S; Status: F Test: URINE CULTURE; Value: TOBRAMYCIN <=1 S; Status: F Test: URINE CULTURE; Value: CEFTRIAXONE <=1 S; Status: F Test: URINE CULTURE; Value: CEFTAZIDIME <=1 S; Status: F Test: URINE CULTURE; Value: AMPICILLIN/SULBACTAM <=2 S; Status: F Test: URINE CULTURE; Value: PIPERACILLIN/TAZOBACTAM <=4 S; Status: F Test: URINE CULTURE; Value: AZTREONAM <=1 S; Status: F Test: URINE CULTURE; Value: ERTAPENEM <=0.5 S; Status: F Test: URINE CULTURE; Value: MEROPENEM <=0.25 S; Status: F Test: URINE CULTURE; Value: TIGECYCLINE <=0.5 S; Status: F Test: URINE CULTURE; Value: CEFEPIME <=1 S; Status: F Lab Order: GATS (NEGATIVE STREP SCREEN); SPEC'M 12/18/16 18:22 Test: GATS CULTURE (NEG STREP SCR); Value: GATS RESULT NEGATIVE FOR STREP PYOGENES (GROUP A); Status: F Outcome: 18:50 Discharge ordered by Provider. mo1 18:53 Discharge Assessment: Patient awake, alert and oriented x 3. No cognitive and/or pml functional deficits noted. Patient verbalized understanding of disposition instructions. patient administered narcotics - no. The following High Risk Discharge criteria are identified: None. Discharged to home ambulatory. Condition: good Condition: stable. Discharge instructions given to patient, Instructed on discharge instructions, follow up and referral plans. medication usage, Demonstrated understanding of instructions, medications, Pt was receptive of discharge instructions/ teaching. No special radiology studies were completed. Property sent home with patient. 18:55 Patient left the ED. pml 12/20 11:17 Urine culture results reviewed with Dr. Pang and no change in treatment needed.:. kcs Addendum: 12/21/2016 12:44 Narrative: urine culture reviewed,pt treated appropriately. [facility] Signatures: Dispatcher [employer] Lizeth Prescott RN RN kcs Jobson, Karen, RN RN [facility] Jackie Herrera, Colleen Blanchardhleen,RN RN kr3 Berna CrandallRN RN jo3 Pearl Kulkarni mt4 Marlen HancockRN RN pml King Amezcua PA PA mo1 Roxann Jorgensen, Reg Reg ks16 Corrections: (The following items were deleted from the chart) 12/18 18:02 18:01 Presenting complaint: Patient states: last dose Tylenol 1600 pml pml MTDD
--- NOTE | 2016-12-21 12:45 | EDDOCDS ---
Physician Documentation [facility] Name: Reshma Sadler Age: 51 yrs Sex: Female : 1965 Arrival Date: 12/18/2016 Time: 17:40 Bed TR3 Private MD: King Valentino WAT Disposition: 12/18/16 18:50 Discharged to Home/Self Care. Impression: Urinary tract infection, site not specified. - Condition is Stable. - Discharge Instructions: Fever, Adult, Urinary Tract Infection. - Prescriptions for Cipro 500 mg Oral Tablet - take 1 tablet by ORAL route every 12 hours; 14 tablet. - Medication Reconciliation, Work Release Form - 2 day, Local Pharmacy Hours form. - Follow up: King Valentino; When: Call to arrange an appointment; Reason: Recheck today's complaints, Continuance of care. - Problem is new. - Symptoms are unchanged. Historical: - Allergies: no known allergies; - Home Meds: 1. none - PMHx: none; - PSHx: Cholecystectomy; - Social history: Smoking status: Patient states was never smoker of tobacco. No barriers to communication noted, The patient speaks fluent Tajik, Speaks appropriately for age. - Family history: Not pertinent. - : The pt / caregiver states he / she is not on anticoagulants. Home medication list is obtained from the patient. - Exposure Risk Screening:: None identified. 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 0 in. (152.40 cm) (R); Pain 6/10; 17:42 Body Mass Index 23.44 (54.43 kg, 152.40 cm) mt4 MDM: 18:10 Ibuprofen 400 mg PO once ordered. dt4 18:10 Acetaminophen Tablet 650 mg PO once ordered. dt4 18:10 Strep Screen, Nursing ordered. dt4 18:10 Urinalysis Ordered. EDMS 18:10 Urine Culture Ordered. EDMS 18:37 GATS (NEGATIVE STREP SCREEN) Ordered. EDMS 18:41 Urinalysis Reviewed. mo1 18:47 Ciprofloxacin 500 mg PO once ordered. mo1 19:05 Financial registration complete. ks 19: [facility] Payment Agreement was scanned into [employer] and attached to record. 12/19 11:25 T-Sheet-- Draft Copy was scanned into [employer] and attached to record. gb Administered Medications: 12/18 18:19 Not Given (patient had at 4PM): Ibuprofen 400 mg PO once kr3 18:19 Drug: Acetaminophen 650 mg [acetaminophen 325 mg tablet (2 tabs)] Route: PO; kr3 18:50 Drug: Ciprofloxacin 500 mg [ciprofloxacin 500 mg tablet (1 tabs)] Route: PO; pml Signatures: Dispatcher [employer]Host EDMS Jackie Herrera, Reg Reg gb Marlen Hancock RN RN pml King Amezcua PA PA mo1 Matilda García PA-C PAMayra dt4 Roxann Jorgensen, Reg Reg ks16 Kate Cedeno RN kr3 The chart was reviewed and I authenticate all verbal orders and agree with the evaluation and treatment provided.Corrections: (The following items were deleted from the chart) 18:20 18:10 Obtain sample by nasopharyngeal swab ordered. dt4 kr3 18:22 18:10 INFLUENZA A&B RAPID ANTIGEN+JASWINDER ordered. EDMS EDMS Attachments: 19:05 [facility] Payment Agreement 12/19 11:25 T-Sheet-- Draft Copy gb MTDD
--- NOTE | 2016-12-21 12:45 | EDDOCDS ---
Physician Documentation [facility] Name: Reshma Sadler Age: 51 yrs Sex: Female : 1965 Arrival Date: 12/18/2016 Time: 17:40 Bed TR3 Private MD: King Valentino WAT Disposition: 12/18/16 18:50 Discharged to Home/Self Care. Impression: Urinary tract infection, site not specified. - Condition is Stable. - Discharge Instructions: Fever, Adult, Urinary Tract Infection. - Prescriptions for Cipro 500 mg Oral Tablet - take 1 tablet by ORAL route every 12 hours; 14 tablet. - Medication Reconciliation, Work Release Form - 2 day, Local Pharmacy Hours form. - Follow up: King Valentino; When: Call to arrange an appointment; Reason: Recheck today's complaints, Continuance of care. - Problem is new. - Symptoms are unchanged. Historical: - Allergies: no known allergies; - Home Meds: 1. none - PMHx: none; - PSHx: Cholecystectomy; - Social history: Smoking status: Patient states was never smoker of tobacco. No barriers to communication noted, The patient speaks fluent [place]ym[place], Speaks appropriately for age. - Family history: Not pertinent. - : The pt / caregiver states he / she is not on anticoagulants. Home medication list is obtained from the patient. - Exposure Risk Screening:: None identified. 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 0 in. (152.40 cm) (R); Pain 6/10; 17:42 Body Mass Index 23.44 (54.43 kg, 152.40 cm) mt4 MDM: 18:10 Ibuprofen 400 mg PO once ordered. dt4 18:10 Acetaminophen Tablet 650 mg PO once ordered. dt4 18:10 Strep Screen, Nursing ordered. dt4 18:10 Urinalysis Ordered. EDMS 18:10 Urine Culture Ordered. EDMS 18:37 GATS (NEGATIVE STREP SCREEN) Ordered. EDMS 18:41 Urinalysis Reviewed. mo1 18:47 Ciprofloxacin 500 mg PO once ordered. mo1 19:05 Financial registration complete. ks 19: [facility] Payment Agreement was scanned into [employer] and attached to record. 12/19 11:25 T-Sheet-- Draft Copy was scanned into [employer] and attached to record. gb Administered Medications: 12/18 18:19 Not Given (patient had at 4PM): Ibuprofen 400 mg PO once kr3 18:19 Drug: Acetaminophen 650 mg [acetaminophen 325 mg tablet (2 tabs)] Route: PO; kr3 18:50 Drug: Ciprofloxacin 500 mg [ciprofloxacin 500 mg tablet (1 tabs)] Route: PO; pml Signatures: Dispatcher MedHost EDMS Jackie Herrera, Reg Reg gb Marlen Hancock RN RN pml King Amezcua PA PA mo1 Matilda García PA-C PAMayra dt4 Roxann Jorgensen, Reg Reg ks16 Kate Cedeno RN kr3 The chart was reviewed and I authenticate all verbal orders and agree with the evaluation and treatment provided.Corrections: (The following items were deleted from the chart) 18:20 18:10 Obtain sample by nasopharyngeal swab ordered. dt4 kr3 18:22 18:10 INFLUENZA A&B RAPID ANTIGEN+JASWINDER ordered. EDMS EDMS Attachments: 19:05 [facility] Payment Agreement 12/19 11:25 T-Sheet-- Draft Copy gb MTDD
--- NOTE | 2016-12-21 12:47 | EDDOCDS ---
Physician Documentation [facility] Name: Reshma Sadler Age: 51 yrs Sex: Female : 1965 Arrival Date: 12/18/2016 Time: 17:40 Bed TR3 Private MD: King Valentino WAT Disposition: 12/18/16 18:50 Discharged to Home/Self Care. Impression: Urinary tract infection, site not specified. - Condition is Stable. - Discharge Instructions: Fever, Adult, Urinary Tract Infection. - Prescriptions for Cipro 500 mg Oral Tablet - take 1 tablet by ORAL route every 12 hours; 14 tablet. - Medication Reconciliation, Work Release Form - 2 day, Local Pharmacy Hours form. - Follow up: King Valentino; When: Call to arrange an appointment; Reason: Recheck today's complaints, Continuance of care. - Problem is new. - Symptoms are unchanged. Historical: - Allergies: no known allergies; - Home Meds: 1. none - PMHx: none; - PSHx: Cholecystectomy; - Social history: Smoking status: Patient states was never smoker of tobacco. No barriers to communication noted, The patient speaks fluent [place]yanese, Speaks appropriately for age. - Family history: Not pertinent. - : The pt / caregiver states he / she is not on anticoagulants. Home medication list is obtained from the patient. - Exposure Risk Screening:: None identified. 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 0 in. (152.40 cm) (R); Pain 6/10; 17:42 Body Mass Index 23.44 (54.43 kg, 152.40 cm) mt4 MDM: 18:10 Ibuprofen 400 mg PO once ordered. dt4 18:10 Acetaminophen Tablet 650 mg PO once ordered. dt4 18:10 Strep Screen, Nursing ordered. dt4 18:10 Urinalysis Ordered. EDMS 18:10 Urine Culture Ordered. EDMS 18:37 GATS (NEGATIVE STREP SCREEN) Ordered. EDMS 18:41 Urinalysis Reviewed. mo1 18:47 Ciprofloxacin 500 mg PO once ordered. mo1 19:05 Financial registration complete. ks16 19:05 [facility] Payment Agreement was scanned into [employer] and attached to record. 12/19 11:25 T-Sheet-- Draft Copy was scanned into [employer] and attached to record. gb Administered Medications: 12/18 18:19 Not Given (patient had at 4PM): Ibuprofen 400 mg PO once kr3 18:19 Drug: Acetaminophen 650 mg [acetaminophen 325 mg tablet (2 tabs)] Route: PO; kr3 18:50 Drug: Ciprofloxacin 500 mg [ciprofloxacin 500 mg tablet (1 tabs)] Route: PO; pml Signatures: Dispatcher MedHost EDMS Jackie Herrera, Reg Reg gb Marlen Hancock RN RN pml King Amezcua PA PA mo1 Matilda García PA-C PAMayra dt4 Roxann Jorgensen, Reg Reg ks16 Kate Cedeno RN kr3 The chart was reviewed and I authenticate all verbal orders and agree with the evaluation and treatment provided.Corrections: (The following items were deleted from the chart) 18:20 18:10 Obtain sample by nasopharyngeal swab ordered. dt4 kr3 18:22 18:10 INFLUENZA A&B RAPID ANTIGEN+JASWINDER ordered. EDMS EDMS Attachments: 19:05 [facility] Payment Agreement 12/19 11:25 T-Sheet-- Draft Copy gb Chart Complete MTDD
--- NOTE | 2016-12-21 12:47 | EDDOCDS ---
Physician Documentation [facility] Name: Reshma Sadler Age: 51 yrs Sex: Female : 1965 Arrival Date: 12/18/2016 Time: 17:40 Bed TR3 Private MD: King Valentino WAT Disposition: 12/18/16 18:50 Discharged to Home/Self Care. Impression: Urinary tract infection, site not specified. - Condition is Stable. - Discharge Instructions: Fever, Adult, Urinary Tract Infection. - Prescriptions for Cipro 500 mg Oral Tablet - take 1 tablet by ORAL route every 12 hours; 14 tablet. - Medication Reconciliation, Work Release Form - 2 day, Local Pharmacy Hours form. - Follow up: King Valentino; When: Call to arrange an appointment; Reason: Recheck today's complaints, Continuance of care. - Problem is new. - Symptoms are unchanged. Historical: - Allergies: no known allergies; - Home Meds: 1. none - PMHx: none; - PSHx: Cholecystectomy; - Social history: Smoking status: Patient states was never smoker of tobacco. No barriers to communication noted, The patient speaks fluent Emirati, Speaks appropriately for age. - Family history: Not pertinent. - : The pt / caregiver states he / she is not on anticoagulants. Home medication list is obtained from the patient. - Exposure Risk Screening:: None identified. 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 0 in. (152.40 cm) (R); Pain 6/10; 17:42 Body Mass Index 23.44 (54.43 kg, 152.40 cm) mt4 MDM: 18:10 Ibuprofen 400 mg PO once ordered. dt4 18:10 Acetaminophen Tablet 650 mg PO once ordered. dt4 18:10 Strep Screen, Nursing ordered. dt4 18:10 Urinalysis Ordered. EDMS 18:10 Urine Culture Ordered. EDMS 18:37 GATS (NEGATIVE STREP SCREEN) Ordered. EDMS 18:41 Urinalysis Reviewed. mo1 18:47 Ciprofloxacin 500 mg PO once ordered. mo1 19:05 Financial registration complete. ks16 19:05 [facility] Payment Agreement was scanned into [employer] and attached to record. 12/19 11:25 T-Sheet-- Draft Copy was scanned into [employer] and attached to record. gb Administered Medications: 12/18 18:19 Not Given (patient had at 4PM): Ibuprofen 400 mg PO once kr3 18:19 Drug: Acetaminophen 650 mg [acetaminophen 325 mg tablet (2 tabs)] Route: PO; kr3 18:50 Drug: Ciprofloxacin 500 mg [ciprofloxacin 500 mg tablet (1 tabs)] Route: PO; pml Signatures: Dispatcher MedHost EDMS Jackie Herrera, Reg Reg gb Marlen Hancock RN RN pml King Amezcua PA PA mo1 Matilda García PA-C PAMayra dt4 Roxann Jorgensen, Reg Reg ks16 Kate Cedeno RN kr3 The chart was reviewed and I authenticate all verbal orders and agree with the evaluation and treatment provided.Corrections: (The following items were deleted from the chart) 18:20 18:10 Obtain sample by nasopharyngeal swab ordered. dt4 kr3 18:22 18:10 INFLUENZA A&B RAPID ANTIGEN+JASWINDER ordered. EDMS EDMS Attachments: 19:05 [facility] Payment Agreement 12/19 11:25 T-Sheet-- Draft Copy gb Chart Complete MTDD
--- NOTE | 2016-12-21 12:47 | EDDOCDS ---
Nurse's Notes [facility] Name: Reshma Sadler Age: 51 yrs Sex: Female : 1965 Arrival Date: 12/18/2016 Time: 17:40 Bed TR3 Private MD: King Valentino WAT Diagnosis: Urinary tract infection, site not specified Presentation: 12/18 18:00 Presenting complaint: Patient states: intermittent fever and body aches for last few pml days. denies abdominal pain, nausea, vomiting. Adult Sepsis Screening: The patient does not have new or worsening altered mentation. Patient's respiratory rate is less than 22. Systolic blood pressure is greater than 100. Patient has a qSOFA score of 0- Negative Sepsis Screen. Suicide/Homicide risk assessment- the patient denies having any suicidal and/or homicidal ideations and does not present with any other emotional, behavioral or mental health complaints. Status: Patient is not a answering service telephone operator or dependent. Transition of care: patient was not received from another setting of care. 18:00 Method Of Arrival: Walkin/Carried/Asstd pml 18:00 Acuity: JACOB Level 4 pml 18:01 Presenting complaint: Patient states: last dose Motrin 1600 - 600mg. pml Triage Assessment: 18:01 General: Appears in no apparent distress, comfortable, Behavior is appropriate for age, pml cooperative. Pain: Location: body aches Pain currently is 8 out of 10 on a pain scale. HIV screening NA for this visit Offered previously. 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 none - PMHx: none; - PSHx: Cholecystectomy; - Social history: Smoking status: Patient states was never smoker of tobacco. No barriers to communication noted, The patient speaks fluent Hungarian, Speaks appropriately for age. - Family history: Not pertinent. - : The pt / caregiver states he / she is not on anticoagulants. Home medication list is obtained from the patient. - Exposure Risk Screening:: None identified. Screenin:37 Screening information is obtained from the patient. Fall risk: No risks identified. kr3 Assistance ADL's: requires no assistance with activities of daily living. Abuse/DV Screen: The patient / caregiver reports he/she is: not in a situation that causes fear, pain or injury. Nutritional screening: No deficits noted. Advance Directives: Currently, there is no health care proxy. home support is adequate. Assessment: 18:36 Reassessment: Patient appears in no apparent distress at this time. Neurological: Level kr3 of Consciousness is awake, alert, Moves all extremities. Gait is steady, Speech is normal. EENT: Denies nasal congestion, nasal discharge. Respiratory: Respiratory effort is even, unlabored. Derm: Skin is normal, Skin temperature is warm. 18:53 General: Appears in no apparent distress, comfortable, Behavior is appropriate for age, pml cooperative. Neurological: Level of Consciousness is awake, alert, Oriented to person, place, time. Cardiovascular: Capillary refill < 3 seconds. Respiratory: Airway is patent Respiratory effort is even, unlabored. GI: Abdomen is non- distended. : Reports urgency urinary frequency. Derm: Skin is pink, warm & dry. Vital Signs: 17:42 BP 100 / 56 LA Sitting (auto/reg); Pulse 118 LA; Resp 18 S; Temp 101.2(O); Pulse Ox 98% mt4 on R/A; Weight 54.43 kg (R); Height 5 ft. 0 in. (152.40 cm) (R); Pain 6/10; 17:42 Body Mass Index 23.44 (54.43 kg, 152.40 cm) mt4 Vitals: 17:42 Log In Time: December 18, 2016 at 17:40. mt4 18:36 Strep Screen is obtained and tested: Negative, a GATSNEG culture is ordered in [facility] kr3 and sent. ED Course: 17:41 Patient visited by Pearl Kulkarni. mt4 17:41 King Valentino is Private Physician. mt4 17:41 Patient moved to Waiting mt4 17:44 Patient moved to Pre RCE mt4 18:01 Triage Initiated pml 18:03 Patient visited by Marlen Hancock RN. pml 18:18 Patient moved to Triage 1 kr3 18:21 Patient moved to TR2 pml 18:21 Patient moved to Triage 1 pml 18:26 Urine Culture Sent. kr3 18:26 Urinalysis Sent. kr3 18:31 King Amezcua PA is PHCP. mo1 18:31 Pascual Pettit MD is Attending Physician. mo1 18:37 The patient / caregiver is instructed regarding the plan of care and ED course. Patient dipti has correct armband on for positive identification. 18:40 Patient visited by King Amezcua PA. mo1 18:50 King Valentino is Referral Physician. mo1 18:53 No IV's were initiated during this patient's visit. No procedures done that require pml assistance. 18:54 Patient moved to TR3 jo3 19:01 Patient name changed from Reshma\S\\S\Doroteo\S\ to Reshma\S\ \S\Doroteo. EDMS 19:05 [facility] Payment Agreement was scanned into [employer] and attached to record. [email or web address] 12/19 11:25 T-Sheet-- Draft Copy was scanned into [employer] and attached to record. gb Administered Medications: 12/18 18:19 Not Given (patient had at 4PM): Ibuprofen 400 mg PO once kr3 18:19 Drug: Acetaminophen 650 mg [acetaminophen 325 mg tablet (2 tabs)] Route: PO; kr3 18:50 Drug: Ciprofloxacin 500 mg [ciprofloxacin 500 mg tablet (1 tabs)] Route: PO; pml Order Results: Lab Order: Urinalysis; SPEC'M 12/18/16 18:22 Test: APPEARANCE, URINE; Value: CLOUDY; Range: CLEAR; Abnormal: Above high normal; Status: F Test: COLOR, URINE; Value: YELLOW; Range: YELLOW; Status: F Test: PH,URINE; Value: 5.0; Range: 5.0-9.0; Units: UNITS; Status: F Test: SPECIFIC GRAVITY URINE AUTO; Value: 1.012; Range: 1.002-1.035; Status: F Test: PROTEIN, URINE AUTO; Value: 2+; Range: NEGATIVE; Abnormal: Above high normal; Units: mg/dL; Status: F Test: GLUCOSE, URINE (UA) AUTO; Value: 1+; Range: NEGATIVE; Abnormal: Above high normal; Units: mg/dL; Status: F Test: KETONE, URINE AUTO; Value: NEGATIVE; Range: NEGATIVE; Units: mg/dL; Status: F Test: UROBILINOGEN, URINE AUTO; Value: 2.0; Range: 0.0-2.0; Abnormal: Above high normal; Units: mg/dL; Status: F Test: BILIRUBIN, URINE AUTO; Value: NEGATIVE; Range: NEGATIVE; Status: F Test: NITRITE, URINE AUTO; Value: NEGATIVE; Range: NEGATIVE; Status: F Test: LEUKOCYTE ESTERASE, URINE AUTO; Value: 3+; Range: NEGATIVE; Abnormal: Above high normal; Status: F Test: BLOOD, URINE BLOOD; Value: 2+; Range: NEGATIVE; Abnormal: Above high normal; Status: F Test: WBC, URINE AUTO; Value: 74; Range: 0-3; Abnormal: Above high normal; Units: /HPF; Status: F Test: RBC, URINE AUTO; Value: 5; Range: 0-3; Abnormal: Above high normal; Units: /HPF; Status: F Test: BACTERIA, URINE AUTO; Value: 2+; Range: NEGATIVE; Abnormal: Above high normal; Status: F Test: SQUAMOUS EPITHELIAL CELL UR AU; Value: 3; Range: 0-6; Units: /HPF; Status: F Test: TRANSITIONAL EPITHELIAL AUTO; Value: 1; Range: NONE; Units: /HPF; Status: F Test: MUCUS, URINE; Value: SMALL; Range: NEGATIVE; Status: F Test: HYALINE CAST, URINE AUTO; Value: 0; Range: 0-1; Units: /LPF; Status: F Test: AMORPHOUS SEDIMENT; Value: SMALL; Range: NEGATIVE; Abnormal: Above high normal; Status: F Lab Order: Urine Culture; SPEC'M 12/18/16 18:22 Test: URINE CULTURE; Value: <EXTERNAL COMMENT eCWMed> FULL REPORT IN LAB NOTES (eCW and Medent).; Status: F Test: URINE CULTURE; Value: ORGANISM 1: ESCHERICHIA COLI; Status: F Test: URINE CULTURE; Value: ESCHERICHIA COLI; Status: F Test: URINE CULTURE; Value: COLONY COUNT CFU/ml 40,000; Status: F Test: URINE CULTURE; Value: GRAM NEG SENSI - VITEK 80; Status: F Test: URINE CULTURE; Value: Method: VIT2; Status: F Test: URINE CULTURE; Value: EXTD BRD SPCTRM BETA LACTAMASE -; Status: F Test: URINE CULTURE; Value: TRIMETHOPRIM/SULFAMETHOXAZOLE <=20 S; Status: F Test: URINE CULTURE; Value: AMPICILLIN <=2 S; Status: F Test: URINE CULTURE; Value: GENTAMICIN <=1 S; Status: F Test: URINE CULTURE; Value: NITROFURANTOIN <=16 S; Status: F Test: URINE CULTURE; Value: CEFAZOLIN <=4 S; Status: F Test: URINE CULTURE; Value: LEVOFLOXACIN <=0.12 S; Status: F Test: URINE CULTURE; Value: TOBRAMYCIN <=1 S; Status: F Test: URINE CULTURE; Value: CEFTRIAXONE <=1 S; Status: F Test: URINE CULTURE; Value: CEFTAZIDIME <=1 S; Status: F Test: URINE CULTURE; Value: AMPICILLIN/SULBACTAM <=2 S; Status: F Test: URINE CULTURE; Value: PIPERACILLIN/TAZOBACTAM <=4 S; Status: F Test: URINE CULTURE; Value: AZTREONAM <=1 S; Status: F Test: URINE CULTURE; Value: ERTAPENEM <=0.5 S; Status: F Test: URINE CULTURE; Value: MEROPENEM <=0.25 S; Status: F Test: URINE CULTURE; Value: TIGECYCLINE <=0.5 S; Status: F Test: URINE CULTURE; Value: CEFEPIME <=1 S; Status: F Lab Order: GATS (NEGATIVE STREP SCREEN); SPEC'M 12/18/16 18:22 Test: GATS CULTURE (NEG STREP SCR); Value: GATS RESULT NEGATIVE FOR STREP PYOGENES (GROUP A); Status: F Outcome: 18:50 Discharge ordered by Provider. mo1 18:53 Discharge Assessment: Patient awake, alert and oriented x 3. No cognitive and/or pml functional deficits noted. Patient verbalized understanding of disposition instructions. patient administered narcotics - no. The following High Risk Discharge criteria are identified: None. Discharged to home ambulatory. Condition: good Condition: stable. Discharge instructions given to patient, Instructed on discharge instructions, follow up and referral plans. medication usage, Demonstrated understanding of instructions, medications, Pt was receptive of discharge instructions/ teaching. No special radiology studies were completed. Property sent home with patient. 18:55 Patient left the ED. pml 12/20 11:17 Urine culture results reviewed with Dr. Pagn and no change in treatment needed.:. kcs Addendum: 12/21/2016 12:44 Narrative: urine culture reviewed,pt treated appropriately. [facility] Signatures: Dispatcher [employer] Lizeth Prescott RN RN kcs Jobson, Karen, RN RN [facility] Jackie Herrera, Colleen Blanchardhleen,RN RN kr3 Berna CrandallRN RN jo3 Pearl Kulkarni mt4 Marlen HancockRN RN pml King Amezcua PA PA mo1 Roxann Jorgensen, Reg Reg [email or web address] Corrections: (The following items were deleted from the chart) 12/18 18:02 18:01 Presenting complaint: Patient states: last dose Tylenol 1600 pml pml Chart Complete MTDD
== END 2016-12-18 18:55 | disposition home or self-care (01) ==
LOC: M ED 17:40
DX: N39.0 Urinary tract infection, site not specified (principal); R50.9 Fever, unspecified

== ENCOUNTER 2016-12-19 17:53 | Emergency (ER) | payer BC ==
[2016-12-19] MEDS ORDERED: ACETAMINOPHEN 325 MG TAB As Ordered ONE (19:45)
[2016-12-19 20:35] LABS: BASO % 0.1 % (0.0-1.0); EOS % 0.5 % (0.0-3.0); LARGE UNSTAINED CELL # 0.3 K/mm3 (0.0-0.4); LARGE UNSTAINED CELL % 2.7 % (0.0-4.0); LYMPH # 0.6 K/mm3 (1.5-4.5); LYMPH % 6.1 % (24.0-44.0); MEAN CORPUSCULAR HEMOGLOBIN 29.8 pg (27.0-33.0); MEAN CORPUSCULAR HGB CONC 33.5 g/dl (32.0-36.5); MEAN CORPUSCULAR VOLUME 88.8 fl (80.0-96.0); MONO # 0.4 K/mm3 (0.0-0.8); MONO % 4.2 % (0.0-5.0); NEUTROPHILS # 8.8 K/mm3 (1.8-7.7); NEUTROPHILS % 86.3 % (36.0-66.0); PLATELET COUNT, AUTOMATED 271 k/mm3 (150-450); RED CELL DISTRIBUTION WIDTH 12.6 % (11.5-14.5); WHITE BLOOD COUNT 10.2 K/mm3 (4.0-10.0)
[2016-12-19] MEDS ORDERED: cefTRIAXone SOD 1 GM VIAL (J0696) As Ordered ONE (22:23)
[2016-12-19 22:31] LABS: ALBUMIN/GLOBULIN RATIO 0.65 (1.00-1.93); BILIRUBIN,DIRECT 0.2 MG/DL (0.0-0.2); BILIRUBIN,TOTAL 0.4 MG/DL (0.2-1.0); CALCIUM LEVEL 7.6 MG/DL (8.5-10.1); CREATININE FOR GFR 2.19 MG/DL (0.55-1.02); GLOMERULAR FILTRATION RATE 25.4 (>58); POTASSIUM SERUM 3.5 MEQ/L (3.5-5.1); TOTAL PROTEIN 5.1 GM/DL (6.4-8.2)
--- NOTE | 2016-12-19 23:38 | EDDOCDS ---
Physician Documentation [facility] Name: Reshma Sadler Age: 51 yrs Sex: Female : 1965 Arrival Date: 12/19/2016 Time: 17:53 Bed I7 / 29 Private MD: King Valentino WAT Disposition: 12/19/16 23:11 Discharged to Home/Self Care. Impression: Urinary tract infection, site not specified. - Condition is Stable. - Discharge Instructions: Pyelonephritis, Adult. - Medication Reconciliation, Work Release Form - 2 day form. - Follow up: Emergency Department; When: Tomorrow; Reason: recheck labs and repeat antibiotics.. - Problem is an ongoing problem. - Symptoms have improved. Historical: - Allergies: no known allergies; - Home Meds: 1. Cipro 500 mg Oral tab 1 tab every 12 hours (Last dose: 12/19/2016 09:00) 2. ibuprofen 200 mg oral tab 2 tabs (Last dose: 12/19/2016 16:00) 3. acetaminophen 500 mg Oral cap 2 caps (Last dose: 12/19/2016 13:00) - PMHx: none; - PSHx: Cholecystectomy; - Social history: Smoking status: Patient states was never smoker of tobacco. No barriers to communication noted, The patient speaks fluent Solomon Islander, Speaks appropriately for age. - Family history: Not pertinent. - : The pt / caregiver states he / she is not on anticoagulants. Home medication list is obtained from the patient. - Exposure Risk Screening:: None identified. Vital Signs: 12/19 17:55 BP 109 / 60; Pulse 106; Resp 18 S; Temp 102.2(O); Pulse Ox 98% on R/A; Weight 56.7 kg / dd6 125 lbs (R); Height 5 ft. 0 in. (152.40 cm) (R); 21:16 Temp 99.1(O); rs3 23:34 BP 100 / 68; Pulse 81; Resp 18; Temp 98.0(O); Pulse Ox 96% on R/A; Pain 0/10; kas2 17:55 Body Mass Index 24.41 (56.70 kg, 152.40 cm) dd6 MDM: 19:21 NS 0.9% 1000 ml IV at bolus once ordered. cc10 19:21 IV Saline Lock ordered. cc10 19:21 Undress patient appropriately for examination ordered. cc10 19:21 Acetaminophen Tablet 975 mg PO once ordered. cc10 19:22 Urine Culture Ordered. EDMS 19:22 Basic Metabolic Profile Ordered. EDMS 19:22 CBC with Diff Ordered. EDMS 19:22 Lipase Ordered. EDMS 19:22 Liver Profile Ordered. EDMS 19:22 Urinalysis Ordered. EDMS 19:22 NOTHING BY MOUTH+DIET ordered. EDMS 19:23 Lactic Acid (Alba tube on ice) Ordered. EDMS 19:58 Financial registration complete. zo 20:16 [facility] Payment Agreement was scanned into [employer] and attached to record. zo 21:08 CBC with Diff Reviewed. cc10 21:08 Urinalysis Reviewed. cc10 21:08 Lactic Acid (Alba tube on ice) Reviewed. cc10 22:03 cefTRIAXone 1 grams IVPB once over 30 mins; dilute in 50mL of NS or D5W ordered. cc10 22:36 Basic Metabolic Profile Reviewed. cc10 22:36 Liver Profile Reviewed. cc10 22:36 Lipase Reviewed. cc10 Administered Medications: 20:09 Drug: NS 0.9% 1000 ml [sodium chloride 0.9 % intravenous solution] Route: IV; Rate: rs3 bolus; Site: right hand; 20:09 Drug: Acetaminophen 975 mg [acetaminophen 325 mg tablet (3 tabs)] Route: PO; rs3 22:32 Drug: cefTRIAXone 1 grams Route: IVPB; Infused Over: 30 mins; Site: left antecubital; rs3 Signatures: Dispatcher [employer] EDAZ Jeancarlos Vargas zo Aydee Clements RN RN hs1 Migel Zambrano PA-C PA-C cc10 Traci Hyatt RN RN kas2 Katlin Crowley RN rs3 The chart was reviewed and I authenticate all verbal orders and agree with the evaluation and treatment provided.Attachments: 20:16 [facility] Payment Agreement zo MTDD
--- NOTE | 2016-12-19 23:38 | EDDOCDS ---
Nurse's Notes [facility] Name: Reshma Sadler Age: 51 yrs Sex: Female : 1965 Arrival Date: 12/19/2016 Time: 17:53 Bed I7 / 29 Private MD: King Valentino WAT Diagnosis: Urinary tract infection, site not specified Presentation: 12/19 18:00 Presenting complaint: Patient states: diagnosed with UTI last night here at [facility] ED. hs1 Patient reports fever and nauseated. Temperature wont go away per patient. Adult Sepsis Screening: The patient does not have new or worsening altered mentation. Patient's respiratory rate is less than 22. Systolic blood pressure is greater than 100. Patient has a qSOFA score of 0- Negative Sepsis Screen. Suicide/Homicide risk assessment- the patient denies having any suicidal and/or homicidal ideations and does not present with any other emotional, behavioral or mental health complaints. 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 Transition of care: patient was not received from another setting of care. 18:00 Acuity: JACOB Level 3 hs1 18:00 Method Of Arrival: Walkin/Carried/Asstd hs1 Triage Assessment: 18:04 General: Appears in no apparent distress, uncomfortable, Behavior is appropriate for hs1 age, cooperative. Pain: Location: abdomen Pain currently is 9 out of 10 on a pain scale. HIV screening NA for this visit Offered previously. Neurological: Level of Consciousness is awake, alert, obeys commands. Respiratory: No deficits noted. GI: Reports nausea. : Denies burning with urination. Historical: - Allergies: no known allergies; - Home Meds: 1. Cipro 500 mg Oral tab 1 tab every 12 hours (Last dose: 12/19/2016 09:00) 2. ibuprofen 200 mg oral tab 2 tabs (Last dose: 12/19/2016 16:00) 3. acetaminophen 500 mg Oral cap 2 caps (Last dose: 12/19/2016 13:00) - PMHx: none; - PSHx: Cholecystectomy; - Social history: Smoking status: Patient states was never smoker of tobacco. No barriers to communication noted, The patient speaks fluent Djiboutian, Speaks appropriately for age. - Family history: Not pertinent. - : The pt / caregiver states he / she is not on anticoagulants. Home medication list is obtained from the patient. - Exposure Risk Screening:: None identified. Screenin:10 Screening information is obtained from the patient. Fall risk: No risks identified. rs3 Assistance ADL's: requires no assistance with activities of daily living. Abuse/DV Screen: The patient / caregiver reports he/she is: not in a situation that causes fear, pain or injury. Nutritional screening: No deficits noted. Advance Directives: Currently, there is no health care proxy. There is no active DNR order. home support is adequate. Assessment: 20:09 General: Appears in no apparent distress, Behavior is appropriate for age, cooperative. rs3 Pain: Location: abdomen. Neurological: Level of Consciousness is awake, alert, Oriented to person, place, time. Cardiovascular: Capillary refill < 3 seconds. Respiratory: Airway is patent Respiratory effort is even, unlabored, Breath sounds are clear bilaterally. GI: Abdomen is non- distended Bowel sounds present X 4 quads. : Urine is clear, Reports burning with urination. Vital Signs: 17:55 BP 109 / 60; Pulse 106; Resp 18 S; Temp 102.2(O); Pulse Ox 98% on R/A; Weight 56.7 kg dd6 (R); Height 5 ft. 0 in. (152.40 cm) (R); 21:16 Temp 99.1(O); rs3 23:34 BP 100 / 68; Pulse 81; Resp 18; Temp 98.0(O); Pulse Ox 96% on R/A; Pain 0/10; kas2 17:55 Body Mass Index 24.41 (56.70 kg, 152.40 cm) dd6 Vitals: 17:55 Log In Time: December 19, 2016 at 17:53. dd6 ED Course: 17:54 Patient visited by Papito Lin PCA. dd6 17:54 King Valentino is Private Physician. dd6 17:54 Patient moved to Waiting dd6 17:55 Patient moved to Pre RCE dd6 18:01 Triage Initiated hs1 19:08 [facility] cc[facility] 19:08 Jerry Gonzalez DO is Attending Physician. cc10 19:15 Patient moved to Triage 3 pml 19:16 Patient visited by Migel Zambrano PA-C. cc10 19:16 Patient visited by Migel Zambrano PA-C. cc10 19:24 Patient moved to b 20:08 Lactic Acid (Alba tube on ice) Sent. rs3 20:09 Basic Metabolic Profile Sent. rs3 20:09 CBC with Diff Sent. rs3 20:09 Lipase Sent. rs3 20:09 Liver Profile Sent. rs3 20:09 Urinalysis Sent. rs3 20:09 Urine Culture Sent. rs3 20:11 Patient visited by Katlin Crowley RN. rs3 20:11 Inserted saline lock: 20 gauge in right hand and blood collected. rs3 20:16 [facility] Payment Agreement was scanned into [employer] and attached to record. zo 20:18 Patient name changed from Reshma\S\\S\Doroteo\S\ to Reshma\S\ \S\Doroteo. EDMS 20:54 Patient visited by Katlin Crowley RN. rs3 22:01 Patient visited by Katlin Crowley RN. rs3 23:34 Discontinued lock bleeding controlled, pressure dressing applied, No redness/swelling kas2 at site. No procedures done that require assistance. 23:35 The patient / caregiver is instructed regarding the plan of care and ED course. kas2 Administered Medications: 20:09 Drug: NS 0.9% 1000 ml [sodium chloride 0.9 % intravenous solution] Route: IV; Rate: rs3 bolus; Site: right hand; 20:09 Drug: Acetaminophen 975 mg [acetaminophen 325 mg tablet (3 tabs)] Route: PO; rs3 22:32 Drug: cefTRIAXone 1 grams Route: IVPB; Infused Over: 30 mins; Site: left antecubital; rs3 Order Results: Lab Order: Basic Metabolic Profile; SPEC'M 12/19/16 21:25 Test: GLUCOSE, FASTING; Value: 146; Range: 70-105; Abnormal: Above high normal; Units: MG/DL; Status: F Test: BLOOD UREA NITROGEN; Value: 25; Range: 7-18; Abnormal: Above high normal; Units: MG/DL; Status: F Test: CREATININE FOR GFR; Value: 2.19; Range: 0.55-1.02; Abnormal: Above high normal; Units: MG/DL; Status: F Test: GLOMERULAR FILTRATION RATE; Value: 25.4; Range: >58; Abnormal: Below low normal; Status: F Test: SODIUM LEVEL; Value: 139; Range: 136-145; Units: MEQ/L; Status: F Test: POTASSIUM SERUM; Value: 3.5; Range: 3.5-5.1; Units: MEQ/L; Status: F Test: CHLORIDE LEVEL; Value: 104; Range: 98-107; Units: MEQ/L; Status: F Test: CARBON DIOXIDE LEVEL; Value: 25; Range: 21-32; Units: MEQ/L; Status: F Test: ANION GAP; Value: 10; Range: 8-16; Units: MEQ/L; Status: F Test: CALCIUM LEVEL; Value: 7.6; Range: 8.5-10.1; Abnormal: Below low normal; Units: MG/DL; Status: F Test Note: ; Units are mL/min/1.73 m2 Chronic Kidney Disease Staging per NKF: Stage I & II GFR >=60 Normal to Mildly Decreased Stage III GFR 30-59 Moderately Decreased Stage IV GFR 15-29 Severely Decreased Stage V GFR <15 Very Little GFR Left ESRD GFR <15 on [employer]ELOPER Lab Order: CBC with Diff; SPEC'M 12/19/16 19:51 Test: WHITE BLOOD COUNT; Value: 10.2; Range: 4.0-10.0; Abnormal: Above high normal; Units: K/mm3; Status: F Test: RED BLOOD COUNT; Value: 3.72; Range: 4.00-5.40; Abnormal: Below low normal; Units: M/mm3; Status: F Test: HEMOGLOBIN; Value: 11.1; Range: 12.0-16.0; Abnormal: Below low normal; Units: g/dl; Status: F Test: HEMATOCRIT; Value: 33.1; Range: 36.0-47.0; Abnormal: Below low normal; Units: %; Status: F Test: MEAN CORPUSCULAR VOLUME; Value: 88.8; Range: 80.0-96.0; Units: fl; Status: F Test: MEAN CORPUSCULAR HEMOGLOBIN; Value: 29.8; Range: 27.0-33.0; Units: pg; Status: F Test: MEAN CORPUSCULAR HGB CONC; Value: 33.5; Range: 32.0-36.5; Units: g/dl; Status: F Test: RED CELL DISTRIBUTION WIDTH; Value: 12.6; Range: 11.5-14.5; Units: %; Status: F Test: PLATELET COUNT, AUTOMATED; Value: 271; Range: 150-450; Units: k/mm3; Status: F Test: NEUTROPHILS %; Value: 86.3; Range: 36.0-66.0; Abnormal: Above high normal; Units: %; Status: F Test: LYMPH %; Value: 6.1; Range: 24.0-44.0; Abnormal: Below low normal; Units: %; Status: F Test: MONO %; Value: 4.2; Range: 0.0-5.0; Units: %; Status: F Test: EOS %; Value: 0.5; Range: 0.0-3.0; Units: %; Status: F Test: BASO %; Value: 0.1; Range: 0.0-1.0; Units: %; Status: F Test: LARGE UNSTAINED CELL %; Value: 2.7; Range: 0.0-4.0; Units: %; Status: F Test: NEUTROPHILS #; Value: 8.8; Range: 1.8-7.7; Abnormal: Above high normal; Units: K/mm3; Status: F Test: LYMPH #; Value: 0.6; Range: 1.5-4.5; Abnormal: Below low normal; Units: K/mm3; Status: F Test: MONO #; Value: 0.4; Range: 0.0-0.8; Units: K/mm3; Status: F Test: EOS #; Value: 0.0; Range: 0.0-0.50; Units: K/mm3; Status: F Test: BASO #; Value: 0.0; Range: 0.0-0.2; Units: K/mm3; Status: F Test: LARGE UNSTAINED CELL #; Value: 0.3; Range: 0.0-0.4; Units: K/mm3; Status: F Lab Order: Lipase; SPEC'M 12/19/16 21:25 Test: LIPASE; Value: 104; Range: 73-393; Units: U/L; Status: F Lab Order: Liver Profile; SPEC'M 12/19/16 21:25 Test: AST/SGOT; Value: 22; Range: 15-37; Units: U/L; Status: F Test: ALT/SGPT; Value: 46; Range: 12-78; Units: U/L; Status: F Test: ALKALINE PHOSPHATASE; Value: 130; Range: 45-117; Abnormal: Above high normal; Units: U/L; Status: F Test: BILIRUBIN,TOTAL; Value: 0.4; Range: 0.2-1.0; Units: MG/DL; Status: F Test: BILIRUBIN,DIRECT; Value: 0.2; Range: 0.0-0.2; Units: MG/DL; Status: F Test: TOTAL PROTEIN; Value: 5.1; Range: 6.4-8.2; Abnormal: Below low normal; Units: GM/DL; Status: F Test: ALBUMIN; Value: 2.0; Range: 3.2-5.2; Abnormal: Below low normal; Units: GM/DL; Status: F Test: ALBUMIN/GLOBULIN RATIO; Value: 0.65; Range: 1.00-1.93; Abnormal: Below low normal; Status: F Lab Order: Urinalysis; SPEC'M 12/19/16 19:51 Test: APPEARANCE, URINE; Value: CLOUDY; Range: CLEAR; Abnormal: Above high normal; Status: F Test: COLOR, URINE; Value: YELLOW; Range: YELLOW; Status: F Test: PH,URINE; Value: 5.0; Range: 5.0-9.0; Units: UNITS; Status: F Test: SPECIFIC GRAVITY URINE AUTO; Value: 1.011; Range: 1.002-1.035; Status: F Test: PROTEIN, URINE AUTO; Value: 2+; Range: NEGATIVE; Abnormal: Above high normal; Units: mg/dL; Status: F Test: GLUCOSE, URINE (UA) AUTO; Value: NEGATIVE; Range: NEGATIVE; Units: mg/dL; Status: F Test: KETONE, URINE AUTO; Value: NEGATIVE; Range: NEGATIVE; Units: mg/dL; Status: F Test: UROBILINOGEN, URINE AUTO; Value: 0.2; Range: 0.0-2.0; Units: mg/dL; Status: F Test: BILIRUBIN, URINE AUTO; Value: NEGATIVE; Range: NEGATIVE; Status: F Test: NITRITE, URINE AUTO; Value: NEGATIVE; Range: NEGATIVE; Status: F Test: LEUKOCYTE ESTERASE, URINE AUTO; Value: 3+; Range: NEGATIVE; Abnormal: Above high normal; Status: F Test: BLOOD, URINE BLOOD; Value: 1+; Range: NEGATIVE; Abnormal: Above high normal; Status: F Test: WBC, URINE AUTO; Value: 33; Range: 0-3; Abnormal: Above high normal; Units: /HPF; Status: F Test: RBC, URINE AUTO; Value: 6; Range: 0-3; Abnormal: Above high normal; Units: /HPF; Status: F Test: BACTERIA, URINE AUTO; Value: 2+; Range: NEGATIVE; Abnormal: Above high normal; Status: F Test: SQUAMOUS EPITHELIAL CELL UR AU; Value: 10; Range: 0-6; Units: /HPF; Status: F Test: HYALINE CAST, URINE AUTO; Value: 0; Range: 0-1; Units: /LPF; Status: F Test: AMORPHOUS SEDIMENT; Value: SMALL; Range: NEGATIVE; Abnormal: Above high normal; Status: F Lab Order: Lactic Acid (Alba tube on ice); SPEC'M 12/19/16 19:51 Test: LACTIC ACID LEVEL, LACTATE; Value: 1.0; Range: 0.4-2.0; Units: MMOL/L; Status: F Outcome: 23:11 Discharge ordered by Provider. cc10 23:35 Discharge Assessment: patient administered narcotics - no. The following High Risk kas2 Discharge criteria are identified: None. Discharged to home ambulatory. Condition: good Condition: stable. CT Study completed. Property :Personal belongings accompany Pt. 23:37 Patient left the ED. kas2 Signatures: Dispatcher [employer] EDMS Jeancarlos Vragas Daniell, HORTICULTURAL MANAGER HORTICULTURAL MANAGER dd6 Katlin CrowleyRN RN rs3 Aydee Clements RN RN kat1 Marlen HancockRN Ozzie Ortega RN RN jmb Coniski, Colin, PA-C PA-C cc10 Traci Hyatt RN RN kas2 MTDD
--- NOTE | 2016-12-22 00:39 | EDDOCDS ---
Physician Documentation [facility] Name: Reshma Sadler Age: 51 yrs Sex: Female : 1965 Arrival Date: 12/19/2016 Time: 17:53 Bed I7 / 29 Private MD: King Valentino WAT Disposition: 12/19/16 23:11 Discharged to Home/Self Care. Impression: Urinary tract infection, site not specified. - Condition is Stable. - Discharge Instructions: Pyelonephritis, Adult. - Medication Reconciliation, Work Release Form - 2 day form. - Follow up: Emergency Department; When: Tomorrow; Reason: recheck labs and repeat antibiotics.. - Problem is an ongoing problem. - Symptoms have improved. Historical: - Allergies: no known allergies; - Home Meds: 1. Cipro 500 mg Oral tab 1 tab every 12 hours (Last dose: 12/19/2016 09:00) 2. ibuprofen 200 mg oral tab 2 tabs (Last dose: 12/19/2016 16:00) 3. acetaminophen 500 mg Oral cap 2 caps (Last dose: 12/19/2016 13:00) - PMHx: none; - PSHx: Cholecystectomy; - Social history: Smoking status: Patient states was never smoker of tobacco. No barriers to communication noted, The patient speaks fluent Lao, Speaks appropriately for age. - Family history: Not pertinent. - : The pt / caregiver states he / she is not on anticoagulants. Home medication list is obtained from the patient. - Exposure Risk Screening:: None identified. Vital Signs: 12/19 17:55 BP 109 / 60; Pulse 106; Resp 18 S; Temp 102.2(O); Pulse Ox 98% on R/A; Weight 56.7 kg / dd6 125 lbs (R); Height 5 ft. 0 in. (152.40 cm) (R); 21:16 Temp 99.1(O); rs3 23:34 BP 100 / 68; Pulse 81; Resp 18; Temp 98.0(O); Pulse Ox 96% on R/A; Pain 0/10; kas2 17:55 Body Mass Index 24.41 (56.70 kg, 152.40 cm) dd6 MDM: 19:21 NS 0.9% 1000 ml IV at bolus once ordered. cc10 19:21 IV Saline Lock ordered. cc10 19:21 Undress patient appropriately for examination ordered. cc10 19:21 Acetaminophen Tablet 975 mg PO once ordered. cc10 19:22 Urine Culture Ordered. EDMS 19:22 Basic Metabolic Profile Ordered. EDMS 19:22 CBC with Diff Ordered. EDMS 19:22 Lipase Ordered. EDMS 19:22 Liver Profile Ordered. EDMS 19:22 Urinalysis Ordered. EDMS 19:22 NOTHING BY MOUTH+DIET ordered. EDMS 19:23 Lactic Acid (Alba tube on ice) Ordered. EDMS 19:58 Financial registration complete. zo :16 [facility] Payment Agreement was scanned into [employer] and attached to record. zo 21:08 CBC with Diff Reviewed. cc10 21:08 Urinalysis Reviewed. cc10 21:08 Lactic Acid (Alba tube on ice) Reviewed. cc10 22:03 cefTRIAXone 1 grams IVPB once over 30 mins; dilute in 50mL of NS or D5W ordered. cc10 22:36 Basic Metabolic Profile Reviewed. cc10 22:36 Liver Profile Reviewed. cc10 22:36 Lipase Reviewed. cc10 12/20 11:09 T-Sheet-- Draft Copy was scanned into [employer] and attached to record. gb Administered Medications: 12/19 20:09 Drug: NS 0.9% 1000 ml [sodium chloride 0.9 % intravenous solution] Route: IV; Rate: rs3 bolus; Site: right hand; 20:09 Drug: Acetaminophen 975 mg [acetaminophen 325 mg tablet (3 tabs)] Route: PO; rs3 22:32 Drug: cefTRIAXone 1 grams Route: IVPB; Infused Over: 30 mins; Site: left antecubital; rs3 Signatures: Dispatcher [employer] EDMS Jackie Herrera, Reg Reg gb Jeancarlos Vargas zo Aydee Clements RN RN hs1 Migel Zambrano PA-C PANathaliaC cc10 Traci Hyatt RN RN [facility] Katlin Crowley RN rs3 The chart was reviewed and I authenticate all verbal orders and agree with the evaluation and treatment provided.Attachments: 20:16 [facility] Payment Agreement zo 12/20 11:09 T-Sheet-- Draft Copy gb Chart Complete MTDD
--- NOTE | 2016-12-22 00:39 | EDDOCDS ---
Physician Documentation [facility] Name: Reshma Sadler Age: 51 yrs Sex: Female : 1965 Arrival Date: 12/19/2016 Time: 17:53 Bed I7 / 29 Private MD: King Valentino WAT Disposition: 12/19/16 23:11 Discharged to Home/Self Care. Impression: Urinary tract infection, site not specified. - Condition is Stable. - Discharge Instructions: Pyelonephritis, Adult. - Medication Reconciliation, Work Release Form - 2 day form. - Follow up: Emergency Department; When: Tomorrow; Reason: recheck labs and repeat antibiotics.. - Problem is an ongoing problem. - Symptoms have improved. Historical: - Allergies: no known allergies; - Home Meds: 1. Cipro 500 mg Oral tab 1 tab every 12 hours (Last dose: 12/19/2016 09:00) 2. ibuprofen 200 mg oral tab 2 tabs (Last dose: 12/19/2016 16:00) 3. acetaminophen 500 mg Oral cap 2 caps (Last dose: 12/19/2016 13:00) - PMHx: none; - PSHx: Cholecystectomy; - Social history: Smoking status: Patient states was never smoker of tobacco. No barriers to communication noted, The patient speaks fluent Danish, Speaks appropriately for age. - Family history: Not pertinent. - : The pt / caregiver states he / she is not on anticoagulants. Home medication list is obtained from the patient. - Exposure Risk Screening:: None identified. Vital Signs: 12/19 17:55 BP 109 / 60; Pulse 106; Resp 18 S; Temp 102.2(O); Pulse Ox 98% on R/A; Weight 56.7 kg / dd6 125 lbs (R); Height 5 ft. 0 in. (152.40 cm) (R); 21:16 Temp 99.1(O); rs3 23:34 BP 100 / 68; Pulse 81; Resp 18; Temp 98.0(O); Pulse Ox 96% on R/A; Pain 0/10; kas2 17:55 Body Mass Index 24.41 (56.70 kg, 152.40 cm) dd6 MDM: 19:21 NS 0.9% 1000 ml IV at bolus once ordered. cc10 19:21 IV Saline Lock ordered. cc10 19:21 Undress patient appropriately for examination ordered. cc10 19:21 Acetaminophen Tablet 975 mg PO once ordered. cc10 19:22 Urine Culture Ordered. EDMS 19:22 Basic Metabolic Profile Ordered. EDMS 19:22 CBC with Diff Ordered. EDMS 19:22 Lipase Ordered. EDMS 19:22 Liver Profile Ordered. EDMS 19:22 Urinalysis Ordered. EDMS 19:22 NOTHING BY MOUTH+DIET ordered. EDMS 19:23 Lactic Acid (Alba tube on ice) Ordered. EDMS 19:58 Financial registration complete. zo :16 [facility] Payment Agreement was scanned into [employer] and attached to record. zo 21:08 CBC with Diff Reviewed. cc10 21:08 Urinalysis Reviewed. cc10 21:08 Lactic Acid (Alba tube on ice) Reviewed. cc10 22:03 cefTRIAXone 1 grams IVPB once over 30 mins; dilute in 50mL of NS or D5W ordered. cc10 22:36 Basic Metabolic Profile Reviewed. cc10 22:36 Liver Profile Reviewed. cc10 22:36 Lipase Reviewed. cc10 12/20 11:09 T-Sheet-- Draft Copy was scanned into [employer] and attached to record. gb Administered Medications: 12/19 20:09 Drug: NS 0.9% 1000 ml [sodium chloride 0.9 % intravenous solution] Route: IV; Rate: rs3 bolus; Site: right hand; 20:09 Drug: Acetaminophen 975 mg [acetaminophen 325 mg tablet (3 tabs)] Route: PO; rs3 22:32 Drug: cefTRIAXone 1 grams Route: IVPB; Infused Over: 30 mins; Site: left antecubital; rs3 Signatures: Dispatcher [employer] EDMS Jackie Herrera, Reg Reg gb Jeancarlos Vargas zo Aydee Clements RN RN hs1 Migel Zambrano PA-C PANathaliaC cc10 Traci Hyatt RN RN [facility]2 Katlin Crowley RN rs3 The chart was reviewed and I authenticate all verbal orders and agree with the evaluation and treatment provided.Attachments: 20:16 [facility] Payment Agreement zo 12/20 11:09 T-Sheet-- Draft Copy gb Chart Complete MTDD
--- NOTE | 2016-12-22 00:39 | EDDOCDS ---
Nurse's Notes [facility] Name: Reshma Sadler Age: 51 yrs Sex: Female : 1965 Arrival Date: 12/19/2016 Time: 17:53 Bed I7 / 29 Private MD: King Valentino WAT Diagnosis: Urinary tract infection, site not specified Presentation: 12/19 18:00 Presenting complaint: Patient states: diagnosed with UTI last night here at [facility] ED. hs1 Patient reports fever and nauseated. Temperature wont go away per patient. Adult Sepsis Screening: The patient does not have new or worsening altered mentation. Patient's respiratory rate is less than 22. Systolic blood pressure is greater than 100. Patient has a qSOFA score of 0- Negative Sepsis Screen. Suicide/Homicide risk assessment- the patient denies having any suicidal and/or homicidal ideations and does not present with any other emotional, behavioral or mental health complaints. Status: Patient is not a service administrator or dependent. Transition of care: patient was not received from another setting of care. 18:00 Acuity: JACOB Level 3 hs1 18:00 Method Of Arrival: Walkin/Carried/Asstd hs1 Triage Assessment: 18:04 General: Appears in no apparent distress, uncomfortable, Behavior is appropriate for hs1 age, cooperative. Pain: Location: abdomen Pain currently is 9 out of 10 on a pain scale. HIV screening NA for this visit Offered previously. Neurological: Level of Consciousness is awake, alert, obeys commands. Respiratory: No deficits noted. GI: Reports nausea. : Denies burning with urination. Historical: - Allergies: no known allergies; - Home Meds: 1. Cipro 500 mg Oral tab 1 tab every 12 hours (Last dose: 12/19/2016 09:00) 2. ibuprofen 200 mg oral tab 2 tabs (Last dose: 12/19/2016 16:00) 3. acetaminophen 500 mg Oral cap 2 caps (Last dose: 12/19/2016 13:00) - PMHx: none; - PSHx: Cholecystectomy; - Social history: Smoking status: Patient states was never smoker of tobacco. No barriers to communication noted, The patient speaks fluent Sammarinese, Speaks appropriately for age. - Family history: Not pertinent. - : The pt / caregiver states he / she is not on anticoagulants. Home medication list is obtained from the patient. - Exposure Risk Screening:: None identified. Screenin:10 Screening information is obtained from the patient. Fall risk: No risks identified. rs3 Assistance ADL's: requires no assistance with activities of daily living. Abuse/DV Screen: The patient / caregiver reports he/she is: not in a situation that causes fear, pain or injury. Nutritional screening: No deficits noted. Advance Directives: Currently, there is no health care proxy. There is no active DNR order. home support is adequate. Assessment: 20:09 General: Appears in no apparent distress, Behavior is appropriate for age, cooperative. rs3 Pain: Location: abdomen. Neurological: Level of Consciousness is awake, alert, Oriented to person, place, time. Cardiovascular: Capillary refill < 3 seconds. Respiratory: Airway is patent Respiratory effort is even, unlabored, Breath sounds are clear bilaterally. GI: Abdomen is non- distended Bowel sounds present X 4 quads. : Urine is clear, Reports burning with urination. Vital Signs: 17:55 BP 109 / 60; Pulse 106; Resp 18 S; Temp 102.2(O); Pulse Ox 98% on R/A; Weight 56.7 kg dd6 (R); Height 5 ft. 0 in. (152.40 cm) (R); 21:16 Temp 99.1(O); rs3 23:34 BP 100 / 68; Pulse 81; Resp 18; Temp 98.0(O); Pulse Ox 96% on R/A; Pain 0/10; kas2 17:55 Body Mass Index 24.41 (56.70 kg, 152.40 cm) dd6 Vitals: 17:55 Log In Time: December 19, 2016 at 17:53. dd6 ED Course: 17:54 Patient visited by Papito Lin PCA. dd6 17:54 King Valentino is Private Physician. dd6 17:54 Patient moved to Waiting dd6 17:55 Patient moved to Pre RCE dd6 18:01 Triage Initiated hs1 19:08 [facility] cc10 19:08 Jerry Gonzalez DO is Attending Physician. cc10 19:15 Patient moved to Triage 3 pml 19:16 Patient visited by Migel Zambrano PA-C. cc10 19:16 Patient visited by Migel Zambrano PA-C. cc10 19:24 Patient moved to b 20:08 Lactic Acid (Alba tube on ice) Sent. rs3 20:09 Basic Metabolic Profile Sent. rs3 20:09 CBC with Diff Sent. rs3 20:09 Lipase Sent. rs3 20:09 Liver Profile Sent. rs3 20:09 Urinalysis Sent. rs3 20:09 Urine Culture Sent. rs3 20:11 Patient visited by Katlin Crowley RN. rs3 20:11 Inserted saline lock: 20 gauge in right hand and blood collected. rs3 20:16 [facility] [place] was [place] into [employer] and attached to record. zo 20:18 Patient name changed from Reshma\S\\S\Doroteo\S\ to Reshma\S\ \S\Doroteo. EDMS 20:54 Patient visited by Katlin Crowley,WILLIAN. rs3 22:01 Patient visited by Katlin Crowley RN. rs3 23:34 Discontinued lock bleeding controlled, pressure dressing applied, No redness/swelling kas2 at site. No procedures done that require assistance. 23:35 The patient / caregiver is instructed regarding the plan of care and ED course. kas2 12/20 11:09 T-Sheet-- Draft Copy was scanned into [employer] and attached to record. gb Administered Medications: 12/19 20:09 Drug: NS 0.9% 1000 ml [sodium chloride 0.9 % intravenous solution] Route: IV; Rate: rs3 bolus; Site: right hand; 20:09 Drug: Acetaminophen 975 mg [acetaminophen 325 mg tablet (3 tabs)] Route: PO; rs3 22:32 Drug: cefTRIAXone 1 grams Route: IVPB; Infused Over: 30 mins; Site: left antecubital; rs3 Order Results: Lab Order: Basic Metabolic Profile; SPEC'M 12/19/16 21:25 Test: GLUCOSE, FASTING; Value: 146; Range: 70-105; Abnormal: Above high normal; Units: MG/DL; Status: F Test: BLOOD UREA NITROGEN; Value: 25; Range: 7-18; Abnormal: Above high normal; Units: MG/DL; Status: F Test: CREATININE FOR GFR; Value: 2.19; Range: 0.55-1.02; Abnormal: Above high normal; Units: MG/DL; Status: F Test: GLOMERULAR FILTRATION RATE; Value: 25.4; Range: >58; Abnormal: Below low normal; Status: F Test: SODIUM LEVEL; Value: 139; Range: 136-145; Units: MEQ/L; Status: F Test: POTASSIUM SERUM; Value: 3.5; Range: 3.5-5.1; Units: MEQ/L; Status: F Test: CHLORIDE LEVEL; Value: 104; Range: 98-107; Units: MEQ/L; Status: F Test: CARBON DIOXIDE LEVEL; Value: 25; Range: 21-32; Units: MEQ/L; Status: F Test: ANION GAP; Value: 10; Range: 8-16; Units: MEQ/L; Status: F Test: CALCIUM LEVEL; Value: 7.6; Range: 8.5-10.1; Abnormal: Below low normal; Units: MG/DL; Status: F Test Note: ; Units are mL/min/1.73 m2 Chronic Kidney Disease Staging per NKF: Stage I & II GFR >=60 Normal to Mildly Decreased Stage III GFR 30-59 Moderately Decreased Stage IV GFR 15-29 Severely Decreased Stage V GFR <15 Very Little GFR Left ESRD GFR <15 on SOAKER MEAT Lab Order: CBC with Diff; SPEC'M 12/19/16 19:51 Test: WHITE BLOOD COUNT; Value: 10.2; Range: 4.0-10.0; Abnormal: Above high normal; Units: K/mm3; Status: F Test: RED BLOOD COUNT; Value: 3.72; Range: 4.00-5.40; Abnormal: Below low normal; Units: M/mm3; Status: F Test: HEMOGLOBIN; Value: 11.1; Range: 12.0-16.0; Abnormal: Below low normal; Units: g/dl; Status: F Test: HEMATOCRIT; Value: 33.1; Range: 36.0-47.0; Abnormal: Below low normal; Units: %; Status: F Test: MEAN CORPUSCULAR VOLUME; Value: 88.8; Range: 80.0-96.0; Units: fl; Status: F Test: MEAN CORPUSCULAR HEMOGLOBIN; Value: 29.8; Range: 27.0-33.0; Units: pg; Status: F Test: MEAN CORPUSCULAR HGB CONC; Value: 33.5; Range: 32.0-36.5; Units: g/dl; Status: F Test: RED CELL DISTRIBUTION WIDTH; Value: 12.6; Range: 11.5-14.5; Units: %; Status: F Test: PLATELET COUNT, AUTOMATED; Value: 271; Range: 150-450; Units: k/mm3; Status: F Test: NEUTROPHILS %; Value: 86.3; Range: 36.0-66.0; Abnormal: Above high normal; Units: %; Status: F Test: LYMPH %; Value: 6.1; Range: 24.0-44.0; Abnormal: Below low normal; Units: %; Status: F Test: MONO %; Value: 4.2; Range: 0.0-5.0; Units: %; Status: F Test: EOS %; Value: 0.5; Range: 0.0-3.0; Units: %; Status: F Test: BASO %; Value: 0.1; Range: 0.0-1.0; Units: %; Status: F Test: LARGE UNSTAINED CELL %; Value: 2.7; Range: 0.0-4.0; Units: %; Status: F Test: NEUTROPHILS #; Value: 8.8; Range: 1.8-7.7; Abnormal: Above high normal; Units: K/mm3; Status: F Test: LYMPH #; Value: 0.6; Range: 1.5-4.5; Abnormal: Below low normal; Units: K/mm3; Status: F Test: MONO #; Value: 0.4; Range: 0.0-0.8; Units: K/mm3; Status: F Test: EOS #; Value: 0.0; Range: 0.0-0.50; Units: K/mm3; Status: F Test: BASO #; Value: 0.0; Range: 0.0-0.2; Units: K/mm3; Status: F Test: LARGE UNSTAINED CELL #; Value: 0.3; Range: 0.0-0.4; Units: K/mm3; Status: F Lab Order: Lipase; SPEC'M 12/19/16 21:25 Test: LIPASE; Value: 104; Range: 73-393; Units: U/L; Status: F Lab Order: Liver Profile; SPEC'M 12/19/16 21:25 Test: AST/SGOT; Value: 22; Range: 15-37; Units: U/L; Status: F Test: ALT/SGPT; Value: 46; Range: 12-78; Units: U/L; Status: F Test: ALKALINE PHOSPHATASE; Value: 130; Range: 45-117; Abnormal: Above high normal; Units: U/L; Status: F Test: BILIRUBIN,TOTAL; Value: 0.4; Range: 0.2-1.0; Units: MG/DL; Status: F Test: BILIRUBIN,DIRECT; Value: 0.2; Range: 0.0-0.2; Units: MG/DL; Status: F Test: TOTAL PROTEIN; Value: 5.1; Range: 6.4-8.2; Abnormal: Below low normal; Units: GM/DL; Status: F Test: ALBUMIN; Value: 2.0; Range: 3.2-5.2; Abnormal: Below low normal; Units: GM/DL; Status: F Test: ALBUMIN/GLOBULIN RATIO; Value: 0.65; Range: 1.00-1.93; Abnormal: Below low normal; Status: F Lab Order: Urinalysis; SPEC'M 12/19/16 19:51 Test: APPEARANCE, URINE; Value: CLOUDY; Range: CLEAR; Abnormal: Above high normal; Status: F Test: COLOR, URINE; Value: YELLOW; Range: YELLOW; Status: F Test: PH,URINE; Value: 5.0; Range: 5.0-9.0; Units: UNITS; Status: F Test: SPECIFIC GRAVITY URINE AUTO; Value: 1.011; Range: 1.002-1.035; Status: F Test: PROTEIN, URINE AUTO; Value: 2+; Range: NEGATIVE; Abnormal: Above high normal; Units: mg/dL; Status: F Test: GLUCOSE, URINE (UA) AUTO; Value: NEGATIVE; Range: NEGATIVE; Units: mg/dL; Status: F Test: KETONE, URINE AUTO; Value: NEGATIVE; Range: NEGATIVE; Units: mg/dL; Status: F Test: UROBILINOGEN, URINE AUTO; Value: 0.2; Range: 0.0-2.0; Units: mg/dL; Status: F Test: BILIRUBIN, URINE AUTO; Value: NEGATIVE; Range: NEGATIVE; Status: F Test: NITRITE, URINE AUTO; Value: NEGATIVE; Range: NEGATIVE; Status: F Test: LEUKOCYTE ESTERASE, URINE AUTO; Value: 3+; Range: NEGATIVE; Abnormal: Above high normal; Status: F Test: BLOOD, URINE BLOOD; Value: 1+; Range: NEGATIVE; Abnormal: Above high normal; Status: F Test: WBC, URINE AUTO; Value: 33; Range: 0-3; Abnormal: Above high normal; Units: /HPF; Status: F Test: RBC, URINE AUTO; Value: 6; Range: 0-3; Abnormal: Above high normal; Units: /HPF; Status: F Test: BACTERIA, URINE AUTO; Value: 2+; Range: NEGATIVE; Abnormal: Above high normal; Status: F Test: SQUAMOUS EPITHELIAL CELL UR AU; Value: 10; Range: 0-6; Units: /HPF; Status: F Test: HYALINE CAST, URINE AUTO; Value: 0; Range: 0-1; Units: /LPF; Status: F Test: AMORPHOUS SEDIMENT; Value: SMALL; Range: NEGATIVE; Abnormal: Above high normal; Status: F Lab Order: Urine Culture; SPEC'M 12/19/16 19:51 Test: URINE CULTURE; Value: <EXTERNAL COMMENT eCWMed> FULL REPORT IN LAB NOTES (eCW and Medent).; Status: F Test: URINE CULTURE; Value: URINE CULTURE RESULT NO GROWTH; Status: F Lab Order: Lactic Acid (Alba tube on ice); SPEC'M 12/19/16 19:51 Test: LACTIC ACID LEVEL, LACTATE; Value: 1.0; Range: 0.4-2.0; Units: MMOL/L; Status: F Outcome: 23:11 Discharge ordered by Provider. cc10 23:35 Discharge Assessment: patient administered narcotics - no. The following High Risk [facility] Discharge criteria are identified: None. Discharged to home ambulatory. Condition: good Condition: stable. CT Study completed. Property :Personal belongings accompany Pt. 23:37 Patient left the ED. kas2 Signatures: Dispatcher [employer] EDMS Jackie Herrera, Reg Reg gb Jeancarlos Vargas Daniell, TOOL ROOM GEAR MACHINE OPERATOR TOOL ROOM GEAR MACHINE OPERATOR dd6 Katlin Crowley,RN RN rs3 Aydee Clements, RN RN hs1 Marlen Hancock,RN RN pml Ozzie Smith,RN RN sandieb Migel Zambrano PA-C PA-C cc10 Traci Hyatt,RN RN kas2 Chart Complete MTDD
== END 2016-12-19 23:37 | disposition home or self-care (01) ==
LOC: M ED 17:53
DX: N10 Acute pyelonephritis (principal); Z90.49 Acquired absence of other specified parts of digestive tract
CPT/HCPCS: 36415; 80048; 80076; 81001; 83605; 83690; 85025; 87086; 96374; 99284; J0696

== ENCOUNTER 2016-12-20 17:45 | Emergency (ER) | payer BC ==
[2016-12-20] MEDS ORDERED: cefTRIAXone SOD 1 GM VIAL (J0696) As Ordered ONE (18:14)
[2016-12-20 18:19] LABS: BASO # 0.1 K/mm3 (0.0-0.2); BASO % 0.9 % (0.0-1.0); EOS # 0.1 K/mm3 (0.0-0.50); EOS % 1.1 % (0.0-3.0); LARGE UNSTAINED CELL # 0.4 K/mm3 (0.0-0.4); LARGE UNSTAINED CELL % 3.6 % (0.0-4.0); LYMPH # 1.7 K/mm3 (1.5-4.5); LYMPH % 13.8 % (24.0-44.0); MEAN CORPUSCULAR HEMOGLOBIN 29.4 pg (27.0-33.0); MEAN CORPUSCULAR HGB CONC 32.2 g/dl (32.0-36.5); MEAN CORPUSCULAR VOLUME 91.3 fl (80.0-96.0); MONO # 0.7 K/mm3 (0.0-0.8); MONO % 6.7 % (0.0-5.0); NEUTROPHILS # 7.2 K/mm3 (1.8-7.7); NEUTROPHILS % 73.8 % (36.0-66.0); PLATELET COUNT, AUTOMATED 355 k/mm3 (150-450); RED CELL DISTRIBUTION WIDTH 13.8 % (11.5-14.5); WHITE BLOOD COUNT 9.7 K/mm3 (4.0-10.0)
[2016-12-20 18:32] LABS: CREATININE FOR GFR 1.92 MG/DL (0.55-1.02); GLOMERULAR FILTRATION RATE 29.6 (>58); POTASSIUM SERUM 3.5 MEQ/L (3.5-5.1)
--- NOTE | 2016-12-20 19:16 | EDDOCDS ---
Nurse's Notes [facility] Name: Reshma Sadler Age: 51 yrs Sex: Female : 1965 Arrival Date: 12/20/2016 Time: 17:45 Bed I4 / M4 Private MD: King Valentino FPA Diagnosis: Urinary tract infection, site not specified-recheck Presentation: 12/20 17:56 Presenting complaint: Patient states: here for recheck blood work. Reports third visit kr3 and it was suggested yesterday to be hospitalized. today feeling better, moving slower but better. Adult Sepsis Screening: The patient does not have new or worsening altered mentation. Patient's respiratory rate is less than 22. Systolic blood pressure is greater than 100. Patient has a qSOFA score of 0- Negative Sepsis Screen. Suicide/Homicide risk assessment- the patient denies having any suicidal and/or homicidal ideations and does not present with any other emotional, behavioral or mental health complaints. 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 Transition of care: patient was not received from another setting of care. 17:56 Acuity: JACOB Level 3 kr3 17:56 Method Of Arrival: Walkin/Carried/Asstd kr3 Triage Assessment: 17:59 General: Appears in no apparent distress, comfortable, Behavior is appropriate for age, kr3 cooperative. Pain: Location: abdomen Pain currently is 3 out of 10 on a pain scale. Quality of pain is described as sensitive. HIV screening NA for this visit Offered previously. The patient is triaged at the bedside. See Assessment in Nurses Notes section of ED record. Neurological: Level of Consciousness is awake, alert. Respiratory: Respiratory effort is even, unlabored. : No deficits noted. Derm: Skin is normal. 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 acetaminophen 500 mg Oral tab 2 caps (Last dose: 12/20/2016 11:00) 2. ibuprofen 200 mg Oral tab 2 tabs (Last dose: 12/20/2016 14:30) - PMHx: none; - PSHx: Cholecystectomy (1990); - Social history: Smoking status: Patient states was never smoker of tobacco. No barriers to communication noted, The patient speaks fluent Guamanian, Speaks appropriately for age. - Family history: Not pertinent. - : The pt / caregiver states he / she is not on anticoagulants. Home medication list is obtained from the patient. - Exposure Risk Screening:: None identified. Screenin:13 Screening information is obtained from the patient. Fall risk: No risks identified. ms18 Assistance ADL's: requires no assistance with activities of daily living. Abuse/DV Screen: The patient / caregiver reports he/she is: not in a situation that causes fear, pain or injury. Nutritional screening: No deficits noted. Advance Directives: There is no living will. home support is adequate. Assessment: 18:20 General: Appears in no apparent distress, Behavior is appropriate for age, cooperative. srm Neurological: No deficits noted. EENT: No deficits noted. Cardiovascular: No deficits noted. Respiratory: No deficits noted. GI: Abdomen is non- distended Bowel sounds present X 4 quads. 19:13 General: Appears in no apparent distress, comfortable, Behavior is appropriate for age, ms18 cooperative, pleasant. Pain: Denies pain. Neurological: No deficits noted. Cardiovascular: No deficits noted. Respiratory: Airway is patent Respiratory effort is even, unlabored, Respiratory pattern is regular, symmetrical. Derm: Skin is pink, warm & dry. Vital Signs: 17:46 BP 108 / 64; Pulse 81; Resp 18 S; Temp 97.6(O); Pulse Ox 100% on R/A; Weight 54.43 kg dd6 (R); Height 5 ft. 0 in. (152.40 cm) (R); 19:12 BP 124 / 87; Pulse 85; Resp 18; Temp 97.6; Pulse Ox 96% ; Pain 0/10; ajs 17:46 Body Mass Index 23.44 (54.43 kg, 152.40 cm) dd6 Vitals: 17:46 Log In Time: December 20, 2016 at 17:44. dd6 ED Course: 17:46 Patient visited by Papito Lin PCA. dd6 17:46 King Valentino is Private Physician. dd6 17:46 Patient moved to Waiting dd6 17:47 Patient moved to Pre RCE dd6 17:52 [facility] cc[facility] 17:52 Marquis Krishnamurthy MD is Attending Physician. cc10 17:54 Patient moved to I4 / M4 kr3 17:57 Triage Initiated kr3 17:58 Patient visited by Migel Zambrano PA-C. cc10 17:58 Patient visited by Migel Zambrano PA-C. cc10 17:59 Patient visited by Migel Zambrano PA-C. cc10 18:10 Patient visited by Martha Richardson, RN. srm 18:10 The patient / caregiver is instructed regarding the plan of care and ED course. Patient rosemarie has correct armband on for positive identification. Placed in gown. Bed in low position. Call light in reach. Side rails up X 1. 18:10 BMP Sent. srm 18:10 CBC with Diff Sent. srm 18:10 Inserted saline lock: 20 gauge in right antecubital area and blood collected. srm 18:13 [facility] Payment Agreement was scanned into [employer] and attached to record. zo 18:20 Patient visited by Martha Richardson, RN. srm 18:35 Patient name changed from Reshma\S\\S\Doroteo\S\ to Reshma\S\ \S\Doroteo. EDMS 19:03 Kavita Rodgers is Referral Physician. cc10 19:12 Patient visited by Gregoria Machado. ajs 19:13 Patient visited by Octavia Hyatt,WILLIAN. ms18 19:13 Property :Personal belongings accompany Pt. ms18 19:13 Discontinued IV lock intact, bleeding controlled, pressure dressing applied, No ms18 redness/swelling at site. No procedures done that require assistance. Administered Medications: 18:19 Drug: cefTRIAXone 1 grams [ceftriaxone 1 gram solution for injection] Route: IVPB; srm Infused Over: 30 mins; Site: right antecubital; 19:13 Follow up: IV Status: Completed infusion; IV Intake: 50ml ms18 Intake: 19:13 IV: 50.00ml; Total: 50.00ml. ms18 Order Results: Lab Order: CBC with Diff; SPEC'M 12/20/16 18:09 Test: WHITE BLOOD COUNT; Value: 9.7; Range: 4.0-10.0; Units: K/mm3; Status: F Test: RED BLOOD COUNT; Value: 4.19; Range: 4.00-5.40; Units: M/mm3; Status: F Test: HEMOGLOBIN; Value: 12.3; Range: 12.0-16.0; Units: g/dl; Status: F Test: HEMATOCRIT; Value: 38.3; Range: 36.0-47.0; Units: %; Status: F Test: MEAN CORPUSCULAR VOLUME; Value: 91.3; Range: 80.0-96.0; Units: fl; Status: F Test: MEAN CORPUSCULAR HEMOGLOBIN; Value: 29.4; Range: 27.0-33.0; Units: pg; Status: F Test: MEAN CORPUSCULAR HGB CONC; Value: 32.2; Range: 32.0-36.5; Units: g/dl; Status: F Test: RED CELL DISTRIBUTION WIDTH; Value: 13.8; Range: 11.5-14.5; Units: %; Status: F Test: PLATELET COUNT, AUTOMATED; Value: 355; Range: 150-450; Units: k/mm3; Status: F Test: NEUTROPHILS %; Value: 73.8; Range: 36.0-66.0; Abnormal: Above high normal; Units: %; Status: F Test: LYMPH %; Value: 13.8; Range: 24.0-44.0; Abnormal: Below low normal; Units: %; Status: F Test: MONO %; Value: 6.7; Range: 0.0-5.0; Abnormal: Above high normal; Units: %; Status: F Test: EOS %; Value: 1.1; Range: 0.0-3.0; Units: %; Status: F Test: BASO %; Value: 0.9; Range: 0.0-1.0; Units: %; Status: F Test: LARGE UNSTAINED CELL %; Value: 3.6; Range: 0.0-4.0; Units: %; Status: F Test: NEUTROPHILS #; Value: 7.2; Range: 1.8-7.7; Units: K/mm3; Status: F Test: LYMPH #; Value: 1.7; Range: 1.5-4.5; Units: K/mm3; Status: F Test: MONO #; Value: 0.7; Range: 0.0-0.8; Units: K/mm3; Status: F Test: EOS #; Value: 0.1; Range: 0.0-0.50; Units: K/mm3; Status: F Test: BASO #; Value: 0.1; Range: 0.0-0.2; Units: K/mm3; Status: F Test: LARGE UNSTAINED CELL #; Value: 0.4; Range: 0.0-0.4; Units: K/mm3; Status: F Lab Order: [facility]; SPEC'M 12/20/16 18:09 Test: GLUCOSE, FASTING; Value: 113; Range: 70-105; Abnormal: Above high normal; Units: MG/DL; Status: F Test: BLOOD UREA NITROGEN; Value: 21; Range: 7-18; Abnormal: Above high normal; Units: MG/DL; Status: F Test: CREATININE FOR GFR; Value: 1.92; Range: 0.55-1.02; Abnormal: Above high normal; Units: MG/DL; Status: F Test: GLOMERULAR FILTRATION RATE; Value: 29.6; Range: >58; Abnormal: Below low normal; Status: F Test: SODIUM LEVEL; Value: 144; Range: 136-145; Units: MEQ/L; Status: F Test: POTASSIUM SERUM; Value: 3.5; Range: 3.5-5.1; Units: MEQ/L; Status: F Test: CHLORIDE LEVEL; Value: 107; Range: 98-107; Units: MEQ/L; Status: F Test: CARBON DIOXIDE LEVEL; Value: 26; Range: 21-32; Units: MEQ/L; Status: F Test: ANION GAP; Value: 11; Range: 8-16; Units: MEQ/L; Status: F Test: CALCIUM LEVEL; Value: 9.0; Range: 8.5-10.1; Abnormal: Delta; Units: MG/DL; Status: F Test Note: ; Units are mL/min/1.73 m2 Chronic Kidney Disease Staging per NKF: Stage I & II GFR >=60 Normal to Mildly Decreased Stage III GFR 30-59 Moderately Decreased Stage IV GFR 15-29 Severely Decreased Stage V GFR <15 Very Little GFR Left ESRD GFR <15 on PILOT SUBMERSIBLE Outcome: 19:04 Discharge ordered by Provider. cc10 19:13 Discharge Assessment: Patient awake, alert and oriented x 3. No cognitive and/or ms18 functional deficits noted. Patient verbalized understanding of disposition instructions. patient administered narcotics - no. The following High Risk Discharge criteria are identified: None. Discharged to home ambulatory. Condition: good Condition: stable Condition: improved. Discharge instructions given to patient, Instructed on discharge instructions, follow up and referral plans. medication usage, Demonstrated understanding of instructions, medications, Pt was receptive of discharge instructions/ teaching. Prescriptions given X 1. No special radiology studies were completed. 19:15 Patient left the ED. ms18 Signatures: Dispatcher [employer] EDMS Martha Richardson RN RN [facility] Kate Cedeno RN RN kr3 Jeancarlos Vargas Daniell, INTERLOCKER MAINTAINER INTERLOCKER MAINTAINER dd6 Gregoria Machado Colin, PA-C PA-C cc10 Octavia Hyatt RN RN ms18 MTDD
--- NOTE | 2016-12-20 19:16 | EDDOCDS ---
Physician Documentation [facility] Name: Reshma Sadler Age: 51 yrs Sex: Female : 1965 Arrival Date: 12/20/2016 Time: 17:45 Bed I4 / M4 Private MD: King Valentino FPA Disposition: 12/20/16 19:04 Discharged to Home/Self Care. Impression: Urinary tract infection, site not specified - recheck. - Condition is Stable. - Prescriptions for Bactrim DS 800- 160 mg Oral Tablet - take 1 tablet by ORAL route every 12 hours for 5 days; 10 tablet. - Medication Reconciliation, Work Release Form - 2 day form. - Follow up: Emergency Department; When: As needed. Follow up: Kavita Rodgers; When: Call to arrange an appointment; Reason: Further diagnostic work-up, Recheck today's complaints, Continuance of care. - Problem is an ongoing problem. - Symptoms have improved. - Notes: Follow up for a recheck of your kidney functions. Historical: - Allergies: Cipro PO (Upset stomach); - Home Meds: 1. acetaminophen 500 mg Oral tab 2 caps (Last dose: 12/20/2016 11:00) 2. ibuprofen 200 mg Oral tab 2 tabs (Last dose: 12/20/2016 14:30) - PMHx: none; - PSHx: Cholecystectomy (1990); - Social history: Smoking status: Patient states was never smoker of tobacco. No barriers to communication noted, The patient speaks fluent Chadian, Speaks appropriately for age. - Family history: Not pertinent. - : The pt / caregiver states he / she is not on anticoagulants. Home medication list is obtained from the patient. - Exposure Risk Screening:: None identified. 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 0 in. (152.40 cm) (R); 19:12 BP 124 / 87; Pulse 85; Resp 18; Temp 97.6; Pulse Ox 96% ; Pain 0/10; ajs 17:46 Body Mass Index 23.44 (54.43 kg, 152.40 cm) dd6 MDM: 17:59 IV Saline Lock ordered. cc10 17:59 cefTRIAXone 1 grams IVPB once over 30 mins; dilute in 50mL of NS or D5W ordered. cc10 18:00 CBC with Diff Ordered. EDMS 18:00 BMP Ordered. EDMS 18:10 Financial registration complete. zo 18:13 [facility] Payment Agreement was scanned into [employer] and attached to record. zo 18:44 CBC with Diff Reviewed. cc10 18:44 BMP Reviewed. cc10 Administered Medications: 18:19 Drug: cefTRIAXone 1 grams [ceftriaxone 1 gram solution for injection] Route: IVPB; srm Infused Over: 30 mins; Site: right antecubital; 19:13 Follow up: IV Status: Completed infusion; IV Intake: 50ml ms18 Signatures: Dispatcher [employer] EDMS Kate Cedeno RN RN kr3 Jeancarlos Vargas Colin, PA-C PAMayra cc10 Octavia Hyatt RN RN ms18 Martha Richardson RN srm The chart was reviewed and I authenticate all verbal orders and agree with the evaluation and treatment provided.Attachments: 18:13 [facility] Payment Agreement zo MTDD
--- NOTE | 2016-12-22 20:15 | EDDOCDS ---
Physician Documentation [facility] Name: Reshma Sadler Age: 51 yrs Sex: Female : 1965 Arrival Date: 12/20/2016 Time: 17:45 Bed I4 / M4 Private MD: King Valentino FPA Disposition: 12/20/16 19:04 Discharged to Home/Self Care. Impression: Urinary tract infection, site not specified - recheck. - Condition is Stable. - Prescriptions for Bactrim DS 800- 160 mg Oral Tablet - take 1 tablet by ORAL route every 12 hours for 5 days; 10 tablet. - Medication Reconciliation, Work Release Form - 2 day form. - Follow up: Emergency Department; When: As needed. Follow up: Kavita Rodgers; When: Call to arrange an appointment; Reason: Further diagnostic work-up, Recheck today's complaints, Continuance of care. - Problem is an ongoing problem. - Symptoms have improved. - Notes: Follow up for a recheck of your kidney functions. Historical: - Allergies: Cipro PO (Upset stomach); - Home Meds: 1. acetaminophen 500 mg Oral tab 2 caps (Last dose: 12/20/2016 11:00) 2. ibuprofen 200 mg Oral tab 2 tabs (Last dose: 12/20/2016 14:30) - PMHx: none; - PSHx: Cholecystectomy (1990); - Social history: Smoking status: Patient states was never smoker of tobacco. No barriers to communication noted, The patient speaks fluent Ghanaian, Speaks appropriately for age. - Family history: Not pertinent. - : The pt / caregiver states he / she is not on anticoagulants. Home medication list is obtained from the patient. - Exposure Risk Screening:: None identified. 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 0 in. (152.40 cm) (R); 19:12 BP 124 / 87; Pulse 85; Resp 18; Temp 97.6; Pulse Ox 96% ; Pain 0/10; ajs 17:46 Body Mass Index 23.44 (54.43 kg, 152.40 cm) dd6 MDM: 17:59 IV Saline Lock ordered. cc10 17:59 cefTRIAXone 1 grams IVPB once over 30 mins; dilute in 50mL of NS or D5W ordered. cc10 18:00 CBC with Diff Ordered. EDMS 18:00 BMP Ordered. EDMS 18:10 Financial registration complete. zo 18:13 [facility] Payment Agreement was scanned into [employer] and attached to record. zo 18:44 CBC with Diff Reviewed. cc10 18:44 BMP Reviewed. cc10 12/21 03:12 T-Sheet-- Draft Copy was scanned into [employer] and attached to record. hs2 Administered Medications: 12/20 18:19 Drug: cefTRIAXone 1 grams [ceftriaxone 1 gram solution for injection] Route: IVPB; srm Infused Over: 30 mins; Site: right antecubital; 19:13 Follow up: IV Status: Completed infusion; IV Intake: 50ml ms18 Signatures: Dispatcher [employer] EDMS Kate Cedeno RN RN kr3 Jeancarlos Vargas Colin, PA-C PA-C cc10 Octavia Hyatt RN RN ms18 Silvia Carbajal, Reg Reg hs2 Martha Richardson RN srm The chart was reviewed and I authenticate all verbal orders and agree with the evaluation and treatment provided.Attachments: 18:13 [facility] Payment Agreement zo 12/21 03:12 T-Sheet-- Draft Copy hs2 Chart Complete MTDD
--- NOTE | 2016-12-22 20:15 | EDDOCDS ---
Physician Documentation [facility] Name: Reshma Sadler Age: 51 yrs Sex: Female : 1965 Arrival Date: 12/20/2016 Time: 17:45 Bed I4 / M4 Private MD: King Valentino FPA Disposition: 12/20/16 19:04 Discharged to Home/Self Care. Impression: Urinary tract infection, site not specified - recheck. - Condition is Stable. - Prescriptions for Bactrim DS 800- 160 mg Oral Tablet - take 1 tablet by ORAL route every 12 hours for 5 days; 10 tablet. - Medication Reconciliation, Work Release Form - 2 day form. - Follow up: Emergency Department; When: As needed. Follow up: Kavita Rodgers; When: Call to arrange an appointment; Reason: Further diagnostic work-up, Recheck today's complaints, Continuance of care. - Problem is an ongoing problem. - Symptoms have improved. - Notes: Follow up for a recheck of your kidney functions. Historical: - Allergies: Cipro PO (Upset stomach); - Home Meds: 1. acetaminophen 500 mg Oral tab 2 caps (Last dose: 12/20/2016 11:00) 2. ibuprofen 200 mg Oral tab 2 tabs (Last dose: 12/20/2016 14:30) - PMHx: none; - PSHx: Cholecystectomy (1990); - Social history: Smoking status: Patient states was never smoker of tobacco. No barriers to communication noted, The patient speaks fluent Taiwanese, Speaks appropriately for age. - Family history: Not pertinent. - : The pt / caregiver states he / she is not on anticoagulants. Home medication list is obtained from the patient. - Exposure Risk Screening:: None identified. 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 0 in. (152.40 cm) (R); 19:12 BP 124 / 87; Pulse 85; Resp 18; Temp 97.6; Pulse Ox 96% ; Pain 0/10; ajs 17:46 Body Mass Index 23.44 (54.43 kg, 152.40 cm) dd6 MDM: 17:59 IV Saline Lock ordered. cc10 17:59 cefTRIAXone 1 grams IVPB once over 30 mins; dilute in 50mL of NS or D5W ordered. cc10 18:00 CBC with Diff Ordered. EDMS 18:00 BMP Ordered. EDMS 18:10 Financial registration complete. zo 18:13 [facility] Payment Agreement was scanned into [employer] and attached to record. zo 18:44 CBC with Diff Reviewed. cc10 18:44 BMP Reviewed. cc10 12/21 03:12 T-Sheet-- Draft Copy was scanned into [employer] and attached to record. hs2 Administered Medications: 12/20 18:19 Drug: cefTRIAXone 1 grams [ceftriaxone 1 gram solution for injection] Route: IVPB; srm Infused Over: 30 mins; Site: right antecubital; 19:13 Follow up: IV Status: Completed infusion; IV Intake: 50ml ms18 Signatures: Dispatcher [employer] EDMS Kate Cedeno RN RN kr3 Jeancarlos Vargas Colin, PA-C PA-C cc10 Octavia Hyatt RN RN ms18 Silvia Carbajal, Reg Reg hs2 Martha Richardson RN srm The chart was reviewed and I authenticate all verbal orders and agree with the evaluation and treatment provided.Attachments: 18:13 [facility] Payment Agreement zo 12/21 03:12 T-Sheet-- Draft Copy hs2 Chart Complete MTDD
--- NOTE | 2016-12-22 20:16 | EDDOCDS ---
Nurse's Notes [facility] Name: Reshma Sadler Age: 51 yrs Sex: Female : 1965 Arrival Date: 12/20/2016 Time: 17:45 Bed I4 / M4 Private MD: King Valentino FPA Diagnosis: Urinary tract infection, site not specified-recheck Presentation: 12/20 17:56 Presenting complaint: Patient states: here for recheck blood work. Reports third visit kr3 and it was suggested yesterday to be hospitalized. today feeling better, moving slower but better. Adult Sepsis Screening: The patient does not have new or worsening altered mentation. Patient's respiratory rate is less than 22. Systolic blood pressure is greater than 100. Patient has a qSOFA score of 0- Negative Sepsis Screen. Suicide/Homicide risk assessment- the patient denies having any suicidal and/or homicidal ideations and does not present with any other emotional, behavioral or mental health complaints. Status: Patient is not a vice president consulting services or dependent. Transition of care: patient was not received from another setting of care. 17:56 Acuity: JACOB Level 3 kr3 17:56 Method Of Arrival: Walkin/Carried/Asstd kr3 Triage Assessment: 17:59 General: Appears in no apparent distress, comfortable, Behavior is appropriate for age, kr3 cooperative. Pain: Location: abdomen Pain currently is 3 out of 10 on a pain scale. Quality of pain is described as sensitive. HIV screening NA for this visit Offered previously. The patient is triaged at the bedside. See Assessment in Nurses Notes section of ED record. Neurological: Level of Consciousness is awake, alert. Respiratory: Respiratory effort is even, unlabored. : No deficits noted. Derm: Skin is normal. 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 acetaminophen 500 mg Oral tab 2 caps (Last dose: 12/20/2016 11:00) 2. ibuprofen 200 mg Oral tab 2 tabs (Last dose: 12/20/2016 14:30) - PMHx: none; - PSHx: Cholecystectomy (1990); - Social history: Smoking status: Patient states was never smoker of tobacco. No barriers to communication noted, The patient speaks fluent Peruvian, Speaks appropriately for age. - Family history: Not pertinent. - : The pt / caregiver states he / she is not on anticoagulants. Home medication list is obtained from the patient. - Exposure Risk Screening:: None identified. Screenin:13 Screening information is obtained from the patient. Fall risk: No risks identified. ms18 Assistance ADL's: requires no assistance with activities of daily living. Abuse/DV Screen: The patient / caregiver reports he/she is: not in a situation that causes fear, pain or injury. Nutritional screening: No deficits noted. Advance Directives: There is no living will. home support is adequate. Assessment: 18:20 General: Appears in no apparent distress, Behavior is appropriate for age, cooperative. srm Neurological: No deficits noted. EENT: No deficits noted. Cardiovascular: No deficits noted. Respiratory: No deficits noted. GI: Abdomen is non- distended Bowel sounds present X 4 quads. 19:13 General: Appears in no apparent distress, comfortable, Behavior is appropriate for age, ms18 cooperative, pleasant. Pain: Denies pain. Neurological: No deficits noted. Cardiovascular: No deficits noted. Respiratory: Airway is patent Respiratory effort is even, unlabored, Respiratory pattern is regular, symmetrical. Derm: Skin is pink, warm & dry. Vital Signs: 17:46 BP 108 / 64; Pulse 81; Resp 18 S; Temp 97.6(O); Pulse Ox 100% on R/A; Weight 54.43 kg dd6 (R); Height 5 ft. 0 in. (152.40 cm) (R); 19:12 BP 124 / 87; Pulse 85; Resp 18; Temp 97.6; Pulse Ox 96% ; Pain 0/10; ajs 17:46 Body Mass Index 23.44 (54.43 kg, 152.40 cm) dd6 Vitals: 17:46 Log In Time: December 20, 2016 at 17:44. dd6 ED Course: 17:46 Patient visited by Papito Lin PCA. dd6 17:46 King Valentino is Private Physician. dd6 17:46 Patient moved to Waiting dd6 17:47 Patient moved to Pre RCE dd6 17:52 [facility] cc10 17:52 Marquis Krishnamurthy MD is Attending Physician. cc10 17:54 Patient moved to I4 / M4 kr3 17:57 Triage Initiated kr3 17:58 Patient visited by Migel Zambrano PA-C. cc10 17:58 Patient visited by Migel Zambrano PA-C. cc10 17:59 Patient visited by Migel Zambrano PA-C. cc10 18:10 Patient visited by Martha Richardson, RN. srm 18:10 The patient / caregiver is instructed regarding the plan of care and ED course. Patient srm has correct armband on for positive identification. Placed in gown. Bed in low position. Call light in reach. Side rails up X 1. 18:10 BMP Sent. srm 18:10 CBC with Diff Sent. srm 18:10 Inserted saline lock: 20 gauge in right antecubital area and blood collected. srm 18:13 [facility] Payment Agreement was scanned into [employer] and attached to record. zo 18:20 Patient visited by Martha Richardson, RN. srm 18:35 Patient name changed from Reshma\S\\S\Doroteo\S\ to Reshma\S\ \S\Doroteo. EDMS 19:03 Kavita Rodgers is Referral Physician. cc10 19:12 Patient visited by Gregoria Machado. ajs 19:13 Patient visited by Octavia Hyatt,WILLIAN. ms18 19:13 Property :Personal belongings accompany Pt. ms18 19:13 Discontinued IV lock intact, bleeding controlled, pressure dressing applied, No ms18 redness/swelling at site. No procedures done that require assistance. 12/21 03:12 T-Sheet-- Draft Copy was scanned into [employer] and attached to record. hs2 Administered Medications: 12/20 18:19 Drug: cefTRIAXone 1 grams [ceftriaxone 1 gram solution for injection] Route: IVPB; srm Infused Over: 30 mins; Site: right antecubital; 19:13 Follow up: IV Status: Completed infusion; IV Intake: 50ml ms18 Intake: 19:13 IV: 50.00ml; Total: 50.00ml. ms18 Order Results: Lab Order: CBC with Diff; SPEC'M 12/20/16 18:09 Test: WHITE BLOOD COUNT; Value: 9.7; Range: 4.0-10.0; Units: K/mm3; Status: F Test: RED BLOOD COUNT; Value: 4.19; Range: 4.00-5.40; Units: M/mm3; Status: F Test: HEMOGLOBIN; Value: 12.3; Range: 12.0-16.0; Units: g/dl; Status: F Test: HEMATOCRIT; Value: 38.3; Range: 36.0-47.0; Units: %; Status: F Test: MEAN CORPUSCULAR VOLUME; Value: 91.3; Range: 80.0-96.0; Units: fl; Status: F Test: MEAN CORPUSCULAR HEMOGLOBIN; Value: 29.4; Range: 27.0-33.0; Units: pg; Status: F Test: MEAN CORPUSCULAR HGB CONC; Value: 32.2; Range: 32.0-36.5; Units: g/dl; Status: F Test: RED CELL DISTRIBUTION WIDTH; Value: 13.8; Range: 11.5-14.5; Units: %; Status: F Test: PLATELET COUNT, AUTOMATED; Value: 355; Range: 150-450; Units: k/mm3; Status: F Test: NEUTROPHILS %; Value: 73.8; Range: 36.0-66.0; Abnormal: Above high normal; Units: %; Status: F Test: LYMPH %; Value: 13.8; Range: 24.0-44.0; Abnormal: Below low normal; Units: %; Status: F Test: MONO %; Value: 6.7; Range: 0.0-5.0; Abnormal: Above high normal; Units: %; Status: F Test: EOS %; Value: 1.1; Range: 0.0-3.0; Units: %; Status: F Test: BASO %; Value: 0.9; Range: 0.0-1.0; Units: %; Status: F Test: LARGE UNSTAINED CELL %; Value: 3.6; Range: 0.0-4.0; Units: %; Status: F Test: NEUTROPHILS #; Value: 7.2; Range: 1.8-7.7; Units: K/mm3; Status: F Test: LYMPH #; Value: 1.7; Range: 1.5-4.5; Units: K/mm3; Status: F Test: MONO #; Value: 0.7; Range: 0.0-0.8; Units: K/mm3; Status: F Test: EOS #; Value: 0.1; Range: 0.0-0.50; Units: K/mm3; Status: F Test: BASO #; Value: 0.1; Range: 0.0-0.2; Units: K/mm3; Status: F Test: LARGE UNSTAINED CELL #; Value: 0.4; Range: 0.0-0.4; Units: K/mm3; Status: F Lab Order: [facility]; SPEC'M 12/20/16 18:09 Test: GLUCOSE, FASTING; Value: 113; Range: 70-105; Abnormal: Above high normal; Units: MG/DL; Status: F Test: BLOOD UREA NITROGEN; Value: 21; Range: 7-18; Abnormal: Above high normal; Units: MG/DL; Status: F Test: CREATININE FOR GFR; Value: 1.92; Range: 0.55-1.02; Abnormal: Above high normal; Units: MG/DL; Status: F Test: GLOMERULAR FILTRATION RATE; Value: 29.6; Range: >58; Abnormal: Below low normal; Status: F Test: SODIUM LEVEL; Value: 144; Range: 136-145; Units: MEQ/L; Status: F Test: POTASSIUM SERUM; Value: 3.5; Range: 3.5-5.1; Units: MEQ/L; Status: F Test: CHLORIDE LEVEL; Value: 107; Range: 98-107; Units: MEQ/L; Status: F Test: CARBON DIOXIDE LEVEL; Value: 26; Range: 21-32; Units: MEQ/L; Status: F Test: ANION GAP; Value: 11; Range: 8-16; Units: MEQ/L; Status: F Test: CALCIUM LEVEL; Value: 9.0; Range: 8.5-10.1; Abnormal: Delta; Units: MG/DL; Status: F Test Note: ; Units are mL/min/1.73 m2 Chronic Kidney Disease Staging per NKF: Stage I & II GFR >=60 Normal to Mildly Decreased Stage III GFR 30-59 Moderately Decreased Stage IV GFR 15-29 Severely Decreased Stage V GFR <15 Very Little GFR Left ESRD GFR <15 on ERP CONSULTANT Outcome: 19:04 Discharge ordered by Provider. cc10 19:13 Discharge Assessment: Patient awake, alert and oriented x 3. No cognitive and/or ms18 functional deficits noted. Patient verbalized understanding of disposition instructions. patient administered narcotics - no. The following High Risk Discharge criteria are identified: None. Discharged to home ambulatory. Condition: good Condition: stable Condition: improved. Discharge instructions given to patient, Instructed on discharge instructions, follow up and referral plans. medication usage, Demonstrated understanding of instructions, medications, Pt was receptive of discharge instructions/ teaching. Prescriptions given X 1. No special radiology studies were completed. 19:15 Patient left the ED. ms18 Signatures: Dispatcher [employer] EDMS Martha Richardson, RN RN Kate Duran RN RN kr3 Jeancarlos Vargas Daniell, SENIOR UI DEVELOPER SENIOR UI DEVELOPER dd6 Gregoria Machado Colin, PA-C PA-C cc10 Octavia Hyatt RN RN ms18 Silvia Carbajal, Reg Reg hs2 Chart Complete ROSALIA
== END 2016-12-20 19:15 | disposition home or self-care (01) ==
LOC: M ED 17:45
DX: N10 Acute pyelonephritis (principal); Z88.1 Allergy status to other antibiotic agents
CPT/HCPCS: 36415; 80048; 85025; 96365; 99284; J0696

== ENCOUNTER 2016-12-24 05:08 | Emergency (ER) | payer BC ==
[2016-12-24] MEDS ORDERED: ONDANSETRON 4 MG ORAL DISINTEGRATING TAB (S0181) As Ordered ONE (05:41)
--- NOTE | 2016-12-24 05:55 | EDDOCDS ---
Nurse's Notes [facility] Name: Reshma Sadler Age: 51 yrs Sex: Female : 1965 Arrival Date: 12/24/2016 Time: 05:08 Bed 9 Private MD: Diagnosis: Allergy status to drugs, medicaments and biological substances Presentation: 12/24 05:11 Presenting complaint: Patient states: she was diagnosed with a kidney infection this nn1 week. Patient given Bactrim DS, reports she cannot function on this medication. Reports she cannot eat/sleep/drink due to nausea. Patient states she started medication on . Adult Sepsis Screening: The patient does not have new or worsening altered mentation. Patient's respiratory rate is less than 22. Systolic blood pressure is greater than 100. Patient has a qSOFA score of 0- Negative Sepsis Screen. Suicide/Homicide risk assessment- the patient denies having any suicidal and/or homicidal ideations and does not present with any other emotional, behavioral or mental health complaints. Status: Patient is not a service car driver or dependent. Transition of care: patient was not received from another setting of care. 05:11 Acuity: JACOB Level 4 nn1 05:11 Method Of Arrival: Walkin/Carried/Asstd nn1 Triage Assessment: 05:16 General: Appears in no apparent distress, comfortable. General: Patient was on Cipro nn1 prior to Bactrim, patient taken off Cipro due to same symptoms on Monday . Pain: Denies pain. HIV screening NA for this visit Offered previously. The patient is triaged at the bedside. See Assessment in Nurses Notes section of ED record. Neurological: Level of Consciousness is awake, alert, obeys commands, Oriented to person, place, time. GI: Abdomen is non- distended Reports nausea, intolerance of food, intolerance of fluids, she has not vomited up until this point. Reports decreased appetite. 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 acetaminophen 500 mg Oral tab 2 caps 2. ibuprofen 200 mg Oral tab 2 tabs 3. Bactrim DS 800-160 mg Oral tab 1 tab every 12 hours - PMHx: kidney infection; - PSHx: Cholecystectomy; - Social history: Smoking status: Patient states was never smoker of tobacco. No barriers to communication noted, The patient speaks fluent Tristanian, Speaks appropriately for age. - Family history: Not pertinent. - : The pt / caregiver states he / she is not on anticoagulants. Home medication list is obtained from the patient. - Exposure Risk Screening:: None identified. Screenin:18 Screening information is obtained from the patient. Fall risk: No risks identified. nn1 Assistance ADL's: requires no assistance with activities of daily living. Abuse/DV Screen: The patient / caregiver reports he/she is: not in a situation that causes fear, pain or injury. Nutritional screening: No deficits noted. Advance Directives: Currently, there is no health care proxy. There is no active DNR order. home support is adequate. Assessment: 05:44 General: Appears in no apparent distress, Behavior is appropriate for age, cooperative. tm5 Respiratory: Airway is patent Respiratory effort is even, unlabored, Respiratory pattern is regular, symmetrical. GI: Reports nausea. Derm: Skin is pink, warm & dry. normal. Vital Signs: 05:15 BP 108 / 70; Pulse 86; Resp 18; Temp 97.1(TE); Pulse Ox 97% on R/A; Weight 54.43 kg nn1 (R); Height 5 ft. 0 in. (152.40 cm); Pain 0/10; 05:15 Body Mass Index 23.44 (54.43 kg, 152.40 cm) nn1 Vitals: 05:15 Log In Time: December 24, 2016 at 05:08. nn1 ED Course: 05:09 Patient visited by Alan Ortiz Reg. pm4 05:09 Patient moved to Waiting pm4 05:14 Triage Initiated nn1 05:19 Jerry Gonzalez DO is Attending Physician. cs11 05:19 Patient visited by Jeryr Gonzalez DO. cs11 05:19 Patient moved to 9 nn1 05:23 Patient visited by Emma Gay RN. tm5 05:24 Awaiting ED physician evaluation. tm5 05:24 The patient / caregiver is instructed regarding the plan of care and ED course. tm5 05:44 [facility] Payment Agreement was scanned into [employer] and attached to record. hs2 05:44 No IV's were initiated during this patient's visit. No procedures done that require tm5 assistance. 05:46 Patient name changed from Reshma\S\\S\Doroteo\S\ to Reshma\S\ \S\Doroteo. EDMS 05:52 Patient visited by Emma Gay RN. tm5 Administered Medications: 05:44 Drug: Ondansetron ODT 8 mg [ondansetron 4 mg disintegrating tablet (2 tabs)] Route: PO; tm5 05:44 Follow up: Response: Pt left department before re-evaluation is appropriate tm5 Order Results: There are currently no results for this order. Outcome: 05:31 Discharge ordered by Provider. cs11 05:44 Discharge Assessment: Patient awake, alert and oriented x 3. No cognitive and/or tm5 functional deficits noted. Patient verbalized understanding of disposition instructions. patient administered narcotics - no. The following High Risk Discharge criteria are identified: None. Discharged to home ambulatory. Condition: good. Discharge instructions given to patient, Instructed on discharge instructions, follow up and referral plans. medication usage, Demonstrated understanding of instructions, medications, Pt was receptive of discharge instructions/ teaching. Prescriptions given X 2. No special radiology studies were completed. Property :Personal belongings accompany Pt. 05:54 Patient left the ED. tm5 Signatures: Dispatcher [employer] EDMS Jerry Gonzalez, DO cs11 Arianne SteinRN RN nn1 Silvia Carbajal, Reg Reg hs2 Emma Gay,RN RN tm5 Alan Ortiz, Reg Reg pm4 MTDD
--- NOTE | 2016-12-24 05:55 | EDDOCDS ---
Physician Documentation [facility] Name: Reshma Sadler Age: 51 yrs Sex: Female : 1965 Arrival Date: 12/24/2016 Time: 05:08 Bed 9 Private MD: Disposition: 12/24/16 05:31 Discharged to Home/Self Care. Impression: Allergy status to drugs, medicaments and biological substances. - Condition is Stable. - Prescriptions for Keflex 500 mg Oral Capsule - take 1 capsule by ORAL route every 8 hours for 10 days; 30 capsule. ZOFRAN ODT 8 mg - dissolve 1 tablet by ORAL route 3 times per day As needed do not chew, do not swallow whole; 10 tablet. - Medication Reconciliation, Local Pharmacy Hours form. - Follow up: Private Physician; When: Call to arrange an appointment; Reason: Recheck today's complaints. - Problem is an ongoing problem. - Symptoms have improved. Historical: - Allergies: Cipro PO (Upset stomach); - Home Meds: 1. acetaminophen 500 mg Oral tab 2 caps 2. ibuprofen 200 mg Oral tab 2 tabs 3. Bactrim DS 800-160 mg Oral tab 1 tab every 12 hours - PMHx: kidney infection; - PSHx: Cholecystectomy; - Social history: Smoking status: Patient states was never smoker of tobacco. No barriers to communication noted, The patient speaks fluent Sinhala, Speaks appropriately for age. - Family history: Not pertinent. - : The pt / caregiver states he / she is not on anticoagulants. Home medication list is obtained from the patient. - Exposure Risk Screening:: None identified. 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 0 in. (152.40 cm); Pain 0/10; 05:15 Body Mass Index 23.44 (54.43 kg, 152.40 cm) nn1 MDM: 05:41 Ondansetron ODT Oral Disintegrating Tablet 8 mg PO once ordered. cs11 05:43 Financial registration complete. hs2 05:44 [facility] Payment Agreement was scanned into [employer] and attached to record. hs2 Administered Medications: 05:44 Drug: Ondansetron ODT 8 mg [ondansetron 4 mg disintegrating tablet (2 tabs)] Route: PO; tm5 05:44 Follow up: Response: Pt left department before re-evaluation is appropriate tm5 Signatures: Jerry Gonzalez DO DO cs11 Arianne Stein RN RN nn1 Silvia Carbajal, Reg Reg hs2 Emma Gay RN RN tm5 The chart was reviewed and I authenticate all verbal orders and agree with the evaluation and treatment provided.Attachments: 05:44 [facility] Payment Agreement hs2 MTDD
--- NOTE | 2016-12-26 06:55 | EDDOCDS ---
Physician Documentation [facility] Name: Reshma Sadler Age: 51 yrs Sex: Female : 1965 Arrival Date: 12/24/2016 Time: 05:08 Bed 9 Private MD: Disposition: 12/24/16 05:31 Discharged to Home/Self Care. Impression: Allergy status to drugs, medicaments and biological substances. - Condition is Stable. - Prescriptions for Keflex 500 mg Oral Capsule - take 1 capsule by ORAL route every 8 hours for 10 days; 30 capsule. ZOFRAN ODT 8 mg - dissolve 1 tablet by ORAL route 3 times per day As needed do not chew, do not swallow whole; 10 tablet. - Medication Reconciliation, Local Pharmacy Hours form. - Follow up: Private Physician; When: Call to arrange an appointment; Reason: Recheck today's complaints. - Problem is an ongoing problem. - Symptoms have improved. Historical: - Allergies: Cipro PO (Upset stomach); - Home Meds: 1. acetaminophen 500 mg Oral tab 2 caps 2. ibuprofen 200 mg Oral tab 2 tabs 3. Bactrim DS 800-160 mg Oral tab 1 tab every 12 hours - PMHx: kidney infection; - PSHx: Cholecystectomy; - Social history: Smoking status: Patient states was never smoker of tobacco. No barriers to communication noted, The patient speaks fluent Greenlandic, Speaks appropriately for age. - Family history: Not pertinent. - : The pt / caregiver states he / she is not on anticoagulants. Home medication list is obtained from the patient. - Exposure Risk Screening:: None identified. 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 0 in. (152.40 cm); Pain 0/10; 05:15 Body Mass Index 23.44 (54.43 kg, 152.40 cm) nn1 MDM: 05:41 Ondansetron ODT Oral Disintegrating Tablet 8 mg PO once ordered. cs11 05:43 Financial registration complete. hs2 05:44 [facility] Payment Agreement was scanned into [employer] Everywhere and attached to record. hs2 09:00 T-Sheet-- Draft Copy was scanned into [employer] Everywhere and attached to record. [facility] Administered Medications: 05:44 Drug: Ondansetron ODT 8 mg [ondansetron 4 mg disintegrating tablet (2 tabs)] Route: PO; tm5 05:44 Follow up: Response: Pt left department before re-evaluation is appropriate tm5 Signatures: Jerry Gonzalez DO DO cs11 Arianne SteinRN RN nn1 Silvia Carbajal, Reg Reg hs2 Simona Crisostomo Tonya, RN RN tm5 The chart was reviewed and I authenticate all verbal orders and agree with the evaluation and treatment provided.Attachments: 05:44 [facility] Payment Agreement hs2 09:00 T-Sheet-- Draft Copy [facility] Chart Complete MTDD
--- NOTE | 2016-12-26 06:55 | EDDOCDS ---
Nurse's Notes [facility] Name: Reshma Sadler Age: 51 yrs Sex: Female : 1965 Arrival Date: 12/24/2016 Time: 05:08 Bed 9 Private MD: Diagnosis: Allergy status to drugs, medicaments and biological substances Presentation: 12/24 05:11 Presenting complaint: Patient states: she was diagnosed with a kidney infection this nn1 week. Patient given Bactrim DS, reports she cannot function on this medication. Reports she cannot eat/sleep/drink due to nausea. Patient states she started medication on . Adult Sepsis Screening: The patient does not have new or worsening altered mentation. Patient's respiratory rate is less than 22. Systolic blood pressure is greater than 100. Patient has a qSOFA score of 0- Negative Sepsis Screen. Suicide/Homicide risk assessment- the patient denies having any suicidal and/or homicidal ideations and does not present with any other emotional, behavioral or mental health complaints. 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 Transition of care: patient was not received from another setting of care. 05:11 Acuity: JACOB Level 4 nn1 05:11 Method Of Arrival: Walkin/Carried/Asstd nn1 Triage Assessment: 05:16 General: Appears in no apparent distress, comfortable. General: Patient was on Cipro nn1 prior to Bactrim, patient taken off Cipro due to same symptoms on Monday . Pain: Denies pain. HIV screening NA for this visit Offered previously. The patient is triaged at the bedside. See Assessment in Nurses Notes section of ED record. Neurological: Level of Consciousness is awake, alert, obeys commands, Oriented to person, place, time. GI: Abdomen is non- distended Reports nausea, intolerance of food, intolerance of fluids, she has not vomited up until this point. Reports decreased appetite. 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 acetaminophen 500 mg Oral tab 2 caps 2. ibuprofen 200 mg Oral tab 2 tabs 3. Bactrim DS 800-160 mg Oral tab 1 tab every 12 hours - PMHx: kidney infection; - PSHx: Cholecystectomy; - Social history: Smoking status: Patient states was never smoker of tobacco. No barriers to communication noted, The patient speaks fluent Marshallese, Speaks appropriately for age. - Family history: Not pertinent. - : The pt / caregiver states he / she is not on anticoagulants. Home medication list is obtained from the patient. - Exposure Risk Screening:: None identified. Screenin:18 Screening information is obtained from the patient. Fall risk: No risks identified. nn1 Assistance ADL's: requires no assistance with activities of daily living. Abuse/DV Screen: The patient / caregiver reports he/she is: not in a situation that causes fear, pain or injury. Nutritional screening: No deficits noted. Advance Directives: Currently, there is no health care proxy. There is no active DNR order. home support is adequate. Assessment: 05:44 General: Appears in no apparent distress, Behavior is appropriate for age, cooperative. tm5 Respiratory: Airway is patent Respiratory effort is even, unlabored, Respiratory pattern is regular, symmetrical. GI: Reports nausea. Derm: Skin is pink, warm & dry. normal. Vital Signs: 05:15 BP 108 / 70; Pulse 86; Resp 18; Temp 97.1(TE); Pulse Ox 97% on R/A; Weight 54.43 kg nn1 (R); Height 5 ft. 0 in. (152.40 cm); Pain 0/10; 05:15 Body Mass Index 23.44 (54.43 kg, 152.40 cm) nn1 Vitals: 05:15 Log In Time: December 24, 2016 at 05:08. nn1 ED Course: 05:09 Patient visited by Alan Ortiz Reg. pm4 05:09 Patient moved to Waiting pm4 05:14 Triage Initiated nn1 05:19 Jerry Gonzalez DO is Attending Physician. cs11 05:19 Patient visited by Jerry Gonzalez DO. cs11 05:19 Patient moved to 9 nn1 05:23 Patient visited by Emma Gay RN. tm5 05:24 Awaiting ED physician evaluation. tm5 05:24 The patient / caregiver is instructed regarding the plan of care and ED course. tm5 05:44 [facility] Payment Agreement was scanned into [employer] and attached to record. hs2 05:44 No IV's were initiated during this patient's visit. No procedures done that require tm5 assistance. 05:46 Patient name changed from Reshma\S\\S\Doroteo\S\ to Reshma\S\ \S\Dortoeo. EDMS 05:52 Patient visited by Emma Gay RN. tm5 09:00 T-Sheet-- Draft Copy was scanned into [employer] and attached to record. seh Administered Medications: 05:44 Drug: Ondansetron ODT 8 mg [ondansetron 4 mg disintegrating tablet (2 tabs)] Route: PO; tm5 05:44 Follow up: Response: Pt left department before re-evaluation is appropriate tm5 Order Results: There are currently no results for this order. Outcome: 05:31 Discharge ordered by Provider. cs11 05:44 Discharge Assessment: Patient awake, alert and oriented x 3. No cognitive and/or tm5 functional deficits noted. Patient verbalized understanding of disposition instructions. patient administered narcotics - no. The following High Risk Discharge criteria are identified: None. Discharged to home ambulatory. Condition: good. Discharge instructions given to patient, Instructed on discharge instructions, follow up and referral plans. medication usage, Demonstrated understanding of instructions, medications, Pt was receptive of discharge instructions/ teaching. Prescriptions given X 2. No special radiology studies were completed. Property :Personal belongings accompany Pt. 05:54 Patient left the ED. tm5 Signatures: Dispatcher [employer] EDMS Jerry Gonzalez DO DO cs11 Arianne SteinRN RN nn1 Silvia Carbajal, Reg Reg hs2 Simona Crisostomo Tonya,WILLIAN DORSEY tm5 Alan Ortiz, Reg Reg pm4 Chart Complete MTDD
--- NOTE | 2016-12-26 06:55 | EDDOCDS ---
Physician Documentation [facility] Name: Reshma Sadler Age: 51 yrs Sex: Female : 1965 Arrival Date: 12/24/2016 Time: 05:08 Bed 9 Private MD: Disposition: 12/24/16 05:31 Discharged to Home/Self Care. Impression: Allergy status to drugs, medicaments and biological substances. - Condition is Stable. - Prescriptions for Keflex 500 mg Oral Capsule - take 1 capsule by ORAL route every 8 hours for 10 days; 30 capsule. ZOFRAN ODT 8 mg - dissolve 1 tablet by ORAL route 3 times per day As needed do not chew, do not swallow whole; 10 tablet. - Medication Reconciliation, Local Pharmacy Hours form. - Follow up: Private Physician; When: Call to arrange an appointment; Reason: Recheck today's complaints. - Problem is an ongoing problem. - Symptoms have improved. Historical: - Allergies: Cipro PO (Upset stomach); - Home Meds: 1. acetaminophen 500 mg Oral tab 2 caps 2. ibuprofen 200 mg Oral tab 2 tabs 3. Bactrim DS 800-160 mg Oral tab 1 tab every 12 hours - PMHx: kidney infection; - PSHx: Cholecystectomy; - Social history: Smoking status: Patient states was never smoker of tobacco. No barriers to communication noted, The patient speaks fluent Italian, Speaks appropriately for age. - Family history: Not pertinent. - : The pt / caregiver states he / she is not on anticoagulants. Home medication list is obtained from the patient. - Exposure Risk Screening:: None identified. 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 0 in. (152.40 cm); Pain 0/10; 05:15 Body Mass Index 23.44 (54.43 kg, 152.40 cm) nn1 MDM: 05:41 Ondansetron ODT Oral Disintegrating Tablet 8 mg PO once ordered. cs11 05:43 Financial registration complete. hs2 05:44 COUNTS INCLUDE 234 BEDS AT THE [facility] Payment Agreement was scanned into [employer] and attached to record. hs2 09:00 T-Sheet-- Draft Copy was scanned into [employer] and attached to record. [facility] Administered Medications: 05:44 Drug: Ondansetron ODT 8 mg [ondansetron 4 mg disintegrating tablet (2 tabs)] Route: PO; tm5 05:44 Follow up: Response: Pt left department before re-evaluation is appropriate tm5 Signatures: Jerry Gonzalez DO DO cs11 Arianne SteinRN RN nn1 Silvia Carbajal, Reg Reg hs2 Simona Crisostomo Tonya, RN RN tm5 The chart was reviewed and I authenticate all verbal orders and agree with the evaluation and treatment provided.Attachments: 05:44 COUNTS INCLUDE 234 BEDS AT THE [facility] Payment Agreement hs2 09:00 T-Sheet-- Draft Copy [facility] Chart Complete MTDD
== END 2016-12-24 05:54 | disposition home or self-care (01) ==
LOC: M ED 05:08
DX: T50.905A Adverse effect of unspecified drugs, medicaments and biological substances, initial encounter (principal); X58.XXXA Exposure to other specified factors, initial encounter; Y92.89 Other specified places as the place of occurrence of the external cause; Y93.89 Activity, other specified; Y99.8 Other external cause status; N39.0 Urinary tract infection, site not specified; Z90.49 Acquired absence of other specified parts of digestive tract; Z79.1 Long term (current) use of non-steroidal anti-inflammatories (NSAID); Z88.1 Allergy status to other antibiotic agents

== ENCOUNTER → 2017-09-07 | Outpatient (CLI) | payer BC ==
--- NOTE | 2017-09-07 16:42 | REPMRS ---
Patient History The patient states she had a clinical breast exam in 08/2017. Patient had first child at age 34. No known family history of cancer. Digital Woman Screen Mammo: September 07, 2017 - Exam #: [id number] Bilateral CC and MLO view(s) were taken. Technologist: Orin Farias Technologist Prior study comparison: January 17, 2013, digital woman screen mammo performed at [facility]. June 28, 2011, bilateral bilat screen digital mammo performed at [facility]. March 24, 2010, bilateral bilat screen digital mammo performed at [facility]. FINDINGS: There are scattered fibroglandular densities. There is a moderate amount of residual fibroglandular tissue which is fairly symmetric. There is no interval development of dominant mass, architectural distortion, or clustered microcalcification typical of malignancy. There has been no change in the appearance of the mammogram from the prior studies. ASSESSMENT: BI-RADS/ACR category 1 mammogram. Negative. Recommendation Routine screening mammogram of both breasts in 1 year (for women over age 40). This mammogram was interpreted with the aid of an FDA-approved computer-aided dectection system. Electronically Signed By: Chace Wiseman MD 09/07/17 [id number]
== END ==
LOC: M WHC 15:02
PROVIDERS: ATTEND Nurse Practitioner Family
DX: Z12.31 Encounter for screening mammogram for malignant neoplasm of breast (principal)

== ENCOUNTER → 2017-09-07 | Outpatient (REF) | payer BC | LOC: M SFHCWAGY 16:11 | PROVIDERS: ATTEND Nurse Practitioner Family | DX: Z12.4 Encounter for screening for malignant neoplasm of cervix (principal) ==

== ENCOUNTER → 2018-06-22 | Outpatient (CLI) | payer BC | LOC: M WHC 14:34 | DX: Z12.31 Encounter for screening mammogram for malignant neoplasm of breast (principal) | CPT/HCPCS: 77067 ==

== ENCOUNTER → 2018-06-22 | Outpatient (REF) | payer BC | LOC: M SFHCWAGY 14:48 | DX: Z12.4 Encounter for screening for malignant neoplasm of cervix (principal) | CPT/HCPCS: G0123 ==

== ENCOUNTER → 2018-09-27 | Outpatient (CLI) | payer BC | LOC: M RAD 15:47 | DX: M25.551 Pain in right hip (principal) | CPT/HCPCS: 76882 ==

== ENCOUNTER → 2020-01-28 | Outpatient (CLI) | payer BC, OTHER ==
--- NOTE | 2020-01-28 17:44 | REP ---
ULTRASOUND RIGHT HIP SOFT TISSUES: Ultrasound right hip soft tissues performed at the site of a prior dog bite sustained in 2018. Comparison made with prior ultrasound of that area 09/27/2018. At that time of the prior exam, there was a complex fluid collection felt to represent a hematoma. There is reportedly a persistent palpable abnormality in the soft tissue of the posterior right hip, with pain. In that region, there is a small hypoechoic area without internal hyperemia with duplex Doppler evaluation, measuring 6 x 4 x 5 mm. A separate additional similar appearing hypoechoic area adjacent to this measures 4 x 3 x 4 mm. There is not significant internal blood flow. The findings suggest two small foci of old hematoma and/or fibrosis. Electronically Signed by Monroe Alba MD 01/28/2020 08:02 P
== END ==
LOC: M RAD 15:03
PROVIDERS: ATTEND Physician Assistant
DX: S76.211D Strain of adductor muscle, fascia and tendon of right thigh, subsequent encounter (principal); M25.551 Pain in right hip; M79.89 Other specified soft tissue disorders; X58.XXXA Exposure to other specified factors, initial encounter; Y92.9 Unspecified place or not applicable

== ENCOUNTER → 2020-09-23 | Outpatient (CLI) | payer OTHER ==
--- NOTE | 2020-09-23 16:45 | REPMRS ---
Patient History The patient states she had a clinical breast exam in 08/2020. Patient is postmenopausal and had first child at age 34. No known family history of cancer. No Hormone Replacement Therapy 3D TOMOSYNTHESIS WAS PERFORMED. [facility] lifetime risk for breast cancer is12.2 %. Volpara breast density b. Digital Woman Screen Mammo: September 23, 2020 - Exam #: [id number] Bilateral CC and MLO view(s) were taken. Technologist: Amber Walker, Technologist Prior study comparison: June 22, 2018, bilateral digital woman screen mammo performed at [facility]. September 07, 2017, digital woman screen mammo performed at [facility]. FINDINGS: There are scattered fibroglandular densities. There has been no change in the appearance of the mammogram from the prior studies. There is a mild amount of residual fibroglandular tissue which is fairly symmetric. There is no interval development of dominant mass, architectural distortion, or clustered microcalcification suggestive of malignancy. Assessment: BI-RADS/ACR category 1 mammogram. Negative Mammogram. Recommendation Routine screening mammogram in 1 year (for women over age 40). This mammogram was interpreted with the aid of an FDA-approved computer-aided dectection system. Electronically Signed By: Monroe Alba MD 09/23/20 [id number]
== END ==
LOC: M WHC 15:34
PROVIDERS: ATTEND Nurse Practitioner Family
DX: Z12.31 Encounter for screening mammogram for malignant neoplasm of breast (principal); Z78.0 Asymptomatic menopausal state

== ENCOUNTER → 2020-09-23 | Outpatient (REF) | payer BC | LOC: M SFHCWAGY 10:05 | PROVIDERS: ATTEND Nurse Practitioner Family | DX: Z12.4 Encounter for screening for malignant neoplasm of cervix (principal); Z01.419 Encounter for gynecological examination (general) (routine) without abnormal findings ==

== ENCOUNTER → 2022-10-10 | Outpatient (CLI) | payer OTHER | LOC: M WHC 09:24 | PROVIDERS: ATTEND Nurse Practitioner Family | DX: Z12.31 Encounter for screening mammogram for malignant neoplasm of breast (principal) ==

== ENCOUNTER → 2022-10-10 | Outpatient (REF) | payer OTHER | LOC: M PLALAB 10:24 | PROVIDERS: ATTEND Nurse Practitioner Family | DX: Z12.4 Encounter for screening for malignant neoplasm of cervix (principal) | CPT/HCPCS: 87624; G0123 ==

== ENCOUNTER → 2023-12-07 | Outpatient (REF) | payer OTHER ==
[2023-12-07 17:22] LABS: BASO % 0.6 % (0.0-1.0); EOS # 0.2 10^3/uL (0.0-0.5); EOS % 2.7 % (0.0-3.0); HEMATOCRIT 38.1 % (36.0-47.0); HEMOGLOBIN 12.6 g/dl (12.0-15.5); LYMPH # 1.7 10^3/uL (1.5-5.0); LYMPH % 27.1 % (24.0-44.0); MEAN CORPUSCULAR HEMOGLOBIN 29.9 pg (27.0-33.0); MEAN CORPUSCULAR HGB CONC 33.1 g/dl (32.0-36.5); MEAN CORPUSCULAR VOLUME 90.3 fl (80.0-96.0); MONO # 0.6 10^3/uL (0.0-0.8); NEUTROPHILS # 3.8 10^3/uL (1.5-8.5); NEUTROPHILS % 60.4 % (36.0-66.0); PLATELET COUNT, AUTOMATED 341 10^3/uL (150-450); RED BLOOD COUNT 4.22 10^6/uL (4.00-5.40); WHITE BLOOD COUNT 6.3 10^3/uL (4.0-10.0)
[2023-12-07 17:34] LABS: HEMOGLOBIN A1c 5.3 % (4.0-6.0)
[2023-12-07 17:56] LABS: ALBUMIN 3.7 G/DL (3.2-5.2); ALKALINE PHOSPHATASE 110 U/L (46-116); ALT/SGPT 24 U/L (7.0-40); AST/SGOT 23 U/L (<34); BILIRUBIN,TOTAL 0.3 MG/DL (0.3-1.2); BLOOD UREA NITROGEN 13 MG/DL (9-23); CALCIUM LEVEL 9.1 MG/DL (8.5-10.1); CARBON DIOXIDE LEVEL 29 MMOL/L (20-31); CHLORIDE LEVEL 106 MMOL/L (98-107); CHOLESTEROL LEVEL 225 MG/DL (<200); CHOLESTEROL RISK RATIO 3.77 (<5); CREATININE FOR GFR 0.86 MG/DL (0.55-1.30); GLOMERULAR FILTRATION RATE > 60.0 (>51); GLUCOSE, FASTING 98 MG/DL (60-100); HDL CHOLESTEROL 59.6 MG/DL (>40); NON-HDL-C 165.4 MG/DL; POTASSIUM SERUM 4.6 MMOL/L (3.5-5.1); SODIUM LEVEL 139 MMOL/L (136-145); TOTAL PROTEIN 6.5 G/DL (5.7-8.2); TRIGLYCERIDES LEVEL 87 MG/DL (<150)
[2023-12-07 17:59] LABS: THYROID STIMULATING HORMONE 3.123 uIU/ML (0.55-4.78); TOTAL 25(OH) VITAMIN D 37.4 NG/ML (20.0-100.0)
== END ==
LOC: M LAB REF 16:27
PROVIDERS: ATTEND Nurse Practitioner Family
DX: E55.9 Vitamin D deficiency, unspecified (principal); E66.3 Overweight; R53.83 Other fatigue; Z11.9 Encounter for screening for infectious and parasitic diseases, unspecified

== ENCOUNTER → 2025-01-17 | Outpatient (REF) | payer OTHER ==
[2025-01-17 18:15] LABS: BLOOD UREA NITROGEN 19 MG/DL (9-23); CALCIUM LEVEL 9.7 MG/DL (8.5-10.1); CARBON DIOXIDE LEVEL 27 MMOL/L (20-31); CHLORIDE LEVEL 105 MMOL/L (98-107); CHOLESTEROL LEVEL 240 MG/DL (<200); CHOLESTEROL RISK RATIO 3.86 (<5); CREATININE FOR GFR 0.78 MG/DL (0.55-1.30); GLOMERULAR FILTRATION RATE > 60.0 (>51); GLUCOSE, FASTING 104 MG/DL (60-100); HDL CHOLESTEROL 62.1 MG/DL (>40); LDL CHOLESTEROL 162.9 MG/DL (<100); NON-HDL-C 177.9 MG/DL; POTASSIUM SERUM 4.4 MMOL/L (3.5-5.1); SODIUM LEVEL 141 MMOL/L (136-145); TRIGLYCERIDES LEVEL 75 MG/DL (<150)
[2025-01-17 18:16] LABS: THYROID STIMULATING HORMONE 3.285 uIU/ML (0.55-4.78)
[2025-01-17 18:31] LABS: BASO % 0.9 % (0.0-1.0); EOS # 0.1 10^3/uL (0.0-0.5); EOS % 2.8 % (0.0-3.0); HEMATOCRIT 38.8 % (36.0-47.0); HEMOGLOBIN 12.8 g/dl (12.0-15.5); LYMPH # 1.3 10^3/uL (1.5-5.0); LYMPH % 27.4 % (24.0-44.0); MEAN CORPUSCULAR HEMOGLOBIN 29.8 pg (27.0-33.0); MEAN CORPUSCULAR VOLUME 90.4 fl (80.0-96.0); MONO # 0.5 10^3/uL (0.0-0.8); MONO % 10.6 % (2.0-8.0); NEUTROPHILS # 2.7 10^3/uL (1.5-8.5); NEUTROPHILS % 58.1 % (36.0-66.0); PLATELET COUNT, AUTOMATED 325 10^3/uL (150-450); RED BLOOD COUNT 4.29 10^6/uL (4.00-5.40); WHITE BLOOD COUNT 4.6 10^3/uL (4.0-10.0)
[2025-01-17 18:41] LABS: HEMOGLOBIN A1c 5.3 % (4.0-6.0)
== END ==
LOC: M LAB REF 16:04
PROVIDERS: ATTEND Nurse Practitioner Family
DX: R53.83 Other fatigue (principal); E66.3 Overweight

== ENCOUNTER → 2025-03-01 | Outpatient (CLI) | payer OTHER | LOC: M EKG 10:03 | PROVIDERS: ATTEND Nurse Practitioner Family | DX: R55 Syncope and collapse (principal); Z53.9 Procedure and treatment not carried out, unspecified reason ==